=== PATIENT | female | born 1995 | race Caucasian/White ===

== ENCOUNTER 2016-04-13 13:55 | Outpatient (CLI) | payer SELFPAY ==
[~2016-04-13] VITALS: Ht 157.5 cm; Wt 80.1 kg
[~2016-04-13 13:55] MED LIST: PRENAT PO
[2016-04-13 14:02] VITALS: Ht 157.5 cm; Wt 80.1 kg
--- NOTE | 2016-04-13 14:44 | RADRPT ---
PROCEDURE: US OB biophysical profile. CLINICAL INDICATION: decreased movements, labor TECHNIQUE: Multiple sonographic images of the pelvis were obtained. The images were reviewed on a PACS workstation. COMPARISON: 01/10/2016 FINDINGS: There is a single viable intrauterine gestation. Cardiac activity is present with 156 beats per min [place]. There is a vertex presentation. The placenta is anterior. There is no evidence of placental abruption. There is a normal amount of amniotic fluid with an GIORGI = 12.7 cm. Biophysical profile: movement 2/2 tone 2/2. breathing 2/2 GIORGI 2/2 Total 11/11 RPTAT: AA . IMPRESSION: Normal biophysical profile. . .Stevie Moody MD, MD Date Time Electronically viewed and signed by .Stevie Moody MD, MD on 04/13/2016 14:44 .S/
--- NOTE | 2016-04-13 15:37 | TRIAGE ---
OB Triage Datetime Report Generated by CPN: 04/13/2016 15:37 Datetime: 04/13/2016 15:26 Maternal Assessment Level of Consciousness: Fully Conscious DTR's/Clonus: DTRs 1+ Headache: Denies Blurred Vision: No Nausea/Vomiting: Denies RUQ Epigastric Pain: Denies Facial Edema: None Labor Evaluation Frequency: NONE Monitor Mode: External Resting Tone Marcus: Relaxed Heart Rate FHR Baseline Rate: 135 Monitor Mode: External US FHR Baseline Changes: No Baseline Change Variability: Moderate 6-25 bpm Accelerations: 15X15 Decelerations: None Category: Category I Vaginal Exam Membrane Status: Intact Datetime: 04/13/2016 15:17 Maternal Assessment Level of Consciousness: Fully Conscious DTR's/Clonus: DTRs 1+ Headache: Denies Blurred Vision: No Nausea/Vomiting: Denies RUQ Epigastric Pain: Denies Facial Edema: None Labor Evaluation Frequency: X1 Duration (sec)2399: 60 Pattern: Normal: <= 5 Contractions in 10 Minutes Resting Tone Marcus: Relaxed Heart Rate FHR Baseline Rate: 135 Monitor Mode: External US Variability: Moderate 6-25 bpm Accelerations: 15X15 Decelerations: None Category: Category I Pain Assessment Pain Scale: 0 Pain Presence: None/Denies Pain Type: N/A Pain Goal: 0 Vaginal Exam Membrane Status: Intact Datetime: 04/13/2016 14:37 Labor Evaluation Frequency: NONE AT THIS TIME Pattern: Normal: <= 5 Contractions in 10 Minutes Resting Tone Marcus: Relaxed Heart Rate FHR Baseline Rate: 150 Monitor Mode: External US FHR Baseline Changes: No Baseline Change Variability: Moderate 6-25 bpm Accelerations: 15X15 Decelerations: None Category: Category I Datetime: 04/13/2016 14:06 Stage of : OB Triage Assessment Type: Triage Maternal Assessment Level of Consciousness: Fully Conscious DTR's/Clonus: DTRs 2+; No Clonus Headache: Denies Blurred Vision: No Respiratory Effort: Unlabored; Regular Rhythm; Equal Expansion Breath Sounds, Left: Clear and Equal Breath Sounds, Right: Clear and Equal Nausea/Vomiting: Denies RUQ Epigastric Pain: Denies Lower Extremities Edema: None Degree: None Upper Extremities Edema: None Degree: None Facial Edema: None Fall Risk Assessment History of Falling: (0) No Secondary Diagnosis: (0) No Ambulatory Aid: (0) Bedrest/Nurse Assist IV Therapy: (0) No Gait: (0) Normal/Bedrest/Immobile Mental Status: (0) Oriented to Own Ability Fall Score: 0 Fall Risk Score Definition: No Risk: No action required Datetime: 04/13/2016 13:53 Time of Arrival: 04/13/2016 13:53 Arrived By: Ambulatory Arrived From: Home Chief Complaint: FPT CAME IN C/O FLU LIKE Movement: Present Contractions: Denies/Absent Rupture of Membranes: Denies Vaginal Discharge: Denies Recent Sexual Intercouse: Denies Abdominal Trauma: Not Applicable Patient Complaints: Contractions Additional Patient Complaints: NONE Time Provider Notified: 04/13/2016 14:00 Provider Notified: MARLEY Initial Plan: NONE
== END 2016-04-13 15:30 | disposition home or self-care (01) ==
LOC: OBT 13:55 → L-D 13:56 → OBT 15:30
PROVIDERS: ATTEND Obstetrics & Gynecology
DX: O47.1 False labor at or after 37 completed weeks of gestation (principal); Z3A.37 37 weeks gestation of pregnancy
CPT/HCPCS: 76818; G0463

== ENCOUNTER 2016-04-27 15:15 | Inpatient (IN) | payer OTHER ==
[~2016-04-27] VITALS: Ht 157.5 cm; Wt 96.4 kg
[2016-04-27] MEDS ORDERED: LACTATED RINGER'S 1,000 ML IV SCH (15:29)
[2016-04-27] MEDS ORDERED: IBUPROFEN 600 MG TAB PO PRN (15:30)
[2016-04-27] MEDS ORDERED: AMPICILLIN 2 GM/NS (PMX) 100 ML IV ONE (15:30)
[2016-04-27] MEDS ORDERED: BUTORPHANOL 2 MG INJ IV PRN (15:30)
[2016-04-27] MEDS ORDERED: METHYLERGONOVINE 0.2 MG INJ IM PRN (15:30)
[2016-04-27] MEDS ORDERED: LIDOCAINE 1% (MPF) 30 ML INJ INJ PRN (15:30)
[2016-04-27] MEDS ORDERED: OXYTOCIN 30 UNITS/LR 500 ML IV SCH ×2 (15:30)
[2016-04-27] MEDS ORDERED: MISOPROSTOL 200 MCG TAB PR PRN (15:30)
[2016-04-27] MEDS ORDERED: OXYTOCIN 30 UNITS/LR 500 ML IV PRN (15:30)
[2016-04-27] MEDS ORDERED: CARBOPROST 250 MCG INJ IM PRN (15:30)
[2016-04-27] MEDS ORDERED: ACETAMINOPHEN/CODEINE #3 TAB PO PRN (15:30)
[2016-04-27 16:24] VITALS: Ht 157.5 cm; Wt 96.4 kg
[2016-04-27 16:26] VITALS: BP 118/79; PULSE 106; RESP 18
[2016-04-27 17:01] LABS: BASOPHILS % 0.4 % (0.0-2.0); EOSINOPHILS % 0.2 % (0.0-7.0); HEMATOCRIT 38.6 % (37.0-47.0); LYMPHOCYTES # 1.7 10^3/ul (0.8-2.9); LYMPHOCYTES % 16.5 % (15.0-51.0); MEAN CORPUSCULAR HEMOGLOBIN 30.1 pg (29.0-33.0); MEAN CORPUSCULAR HGB CONC 33.7 g/dl (32.0-37.0); MEAN CORPUSCULAR VOLUME 89.4 fl (82.0-101.0); MEAN PLATELET VOLUME 10.4 fl (7.4-10.4); MONOCYTE # 0.9 10^3/ul (0.3-0.9); MONOCYTES % 8.4 % (0.0-11.0); NEUTROPHIL # 7.8 10^3/ul (1.6-7.5); NEUTROPHILS % 74.5 % (39.0-77.0); PLATELET COUNT 214 10^3/UL (140-440); RED BLOOD COUNT 4.32 10^6/ul (4.20-5.40); RED CELL DISTRIBUTION WIDTH 15.8 % (11.5-14.5); UNCORRECTED WBC 10.4 10^3/ul (4.8-10.8); WHITE BLOOD COUNT 10.4 10^3/ul (4.8-10.8)
[2016-04-27 17:05] LABS: CONDITION 1; LH ANALYZER COMMENTS 1
[2016-04-27 17:11] LABS: INR 0.88; PARTIAL THROMBOPLASTIN TIME 27.2 Sec (25.0-35.0); PROTIME 11.9 Sec (12.2-14.2); PT RATIO 0.9
[2016-04-27] MEDS: LACTATED RINGER'S 1,000 ML IV SCH (18:34)
[2016-04-27] MEDS: DEXTROSE 5%-LR 1,000 ML IV SCH (18:47)
[2016-04-27] MEDS ORDERED: DINOPROSTONE 10 MG VAG SUPP VAG ONE (19:00)
[2016-04-27] MEDS: AMPICILLIN 1 GM/NS (PMX) 50 ML IV SCH (20:17)
[2016-04-27] MEDS ORDERED: LACTATED RINGER'S 1,000 ML IV PRN (23:00)
[2016-04-28] MEDS: AMPICILLIN 1 GM/NS (PMX) 50 ML IV SCH ×2 (00:23→03:54)
[2016-04-28] MEDS: DEXTROSE 5%-LR 1,000 ML IV SCH ×2 (07:03→10:34)
[2016-04-28] MEDS: LACTATED RINGER'S 1,000 ML IV SCH ×3 (10:34→23:41)
[2016-04-28] MEDS ORDERED: DINOPROSTONE 10 MG VAG SUPP VAG ONE (15:30)
[2016-04-29] MEDS: LACTATED RINGER'S 1,000 ML IV SCH ×3 (06:59→22:30)
--- NOTE | 2016-04-29 07:51 | RADRPT ---
PROCEDURE: US OB. CLINICAL INDICATION: Post dates TECHNIQUE: Multiple sonographic images of the pelvis were obtained. Transabdominal imaging only w as performed. The images were reviewed on a PACS workstation. COMPARISON: No prior studies are available for comparison. FINDINGS: There is a single live intrauterine gestation. Cardiac activity is present with 129 beats per minut e. position is cephalic. Measurements were made in order to determine age. The results are as follows: BPD = 9.60 cm HC = 33.43 cm AC = 34.09 cm FL = 7.06 cm. Estimated gestational age of approximately 37 weeks 6 days. The estimated date of delivery is 05/14/2016. The EFW = 3296 g, 21.2 %ile. The placenta is anterior. There is no evidence for an abruption or placenta previa. There are no adnexal masses. IMPRESSION: 1. Single live intrauterine gestation of approximately 37 weeks 6 days, by ultrasound criteria. 2. The estimated date of delivery is 05/14/2016. 3. The estimated weight is 3296 g, 21.2 %ile. RPTAT: HH .Alka Espinoza MD, Date Time Electronically viewed and signed by .Alka Espinoza MD, on 04/29/2016 07:51 .G/
[2016-04-29] MEDS ORDERED: OXYTOCIN 30 UNITS/LR 500 ML IV SCH (08:30)
[2016-04-29] MEDS ORDERED: AMPICILLIN 2 GM/NS (PMX) 100 ML IV ONE (14:00)
[2016-04-29] MEDS ORDERED: FENTAnyl 2MCG/ML-ROPIV 0.2% 100 ML ONE (14:17)
[2016-04-29] MEDS ORDERED: NALOXONE (0.4 MG/ML) INJ IV PRN (14:30)
[2016-04-29] MEDS: DEXTROSE 5%-LR 1,000 ML IV PRN ×2 (14:51→22:11)
[2016-04-29] MEDS: AMPICILLIN 1 GM/NS (PMX) 50 ML IV SCH ×2 (18:26→22:03)
[2016-04-30] MEDS: FENTAnyl 2MCG/ML-ROPIV 0.2% 100 ML BAG EPI SCH ×3 (00:05→18:15)
[2016-04-30] MEDS: AMPICILLIN 1 GM/NS (PMX) 50 ML IV SCH ×6 (02:01→21:59)
[2016-04-30] MEDS: LACTATED RINGER'S 1,000 ML IV SCH ×2 (11:38→14:30)
[2016-04-30] MEDS: DEXTROSE 5%-LR 1,000 ML IV PRN ×2 (11:38→20:22)
[2016-04-30 15:27] LABS: BASOPHILS % 0.4 % (0.0-2.0); CONDITION 1; EOSINOPHILS % 0.1 % (0.0-7.0); HEMATOCRIT 38.8 % (37.0-47.0); HEMOGLOBIN 12.9 g/dl (12.0-16.0); LH ANALYZER COMMENTS 1; MEAN CORPUSCULAR HEMOGLOBIN 29.8 pg (29.0-33.0); MEAN CORPUSCULAR HGB CONC 33.4 g/dl (32.0-37.0); MEAN CORPUSCULAR VOLUME 89.3 fl (82.0-101.0); MONOCYTE # 0.6 10^3/ul (0.3-0.9); MONOCYTES % 5.9 % (0.0-11.0); NEUTROPHIL # 8.7 10^3/ul (1.6-7.5); NEUTROPHILS % 83.6 % (39.0-77.0); PLATELET COUNT 189 10^3/UL (140-440); RED BLOOD COUNT 4.35 10^6/ul (4.20-5.40); RED CELL DISTRIBUTION WIDTH 15.6 % (11.5-14.5); UNCORRECTED WBC 10.4 10^3/ul (4.8-10.8); WHITE BLOOD COUNT 10.4 10^3/ul (4.8-10.8)
[2016-04-30 15:37] LABS: ADD UMIC YES; URINE BILIRUBIN (Dip) NEGATIVE (NEGATIVE); URINE BLOOD (Dip) 3+ (NEGATIVE); URINE COLOR LT. YELLOW (YELLOW); URINE GLUCOSE (Dip) NEGATIVE (NEGATIVE); URINE KETONES (Dip) 40 (NEGATIVE); URINE LEUKOCYTE ESTERASE (Dip) NEGATIVE (NEGATIVE); URINE NITRITE (Dip) NEGATIVE (NEGATIVE); URINE TOTAL PROTEIN (Dip) 1+ (NEGATIVE); URINE UROBILINOGEN (Dip) 0.2 E.U./dL (0.1-1.0)
[2016-04-30 15:40] LABS: POTASSIUM 3.9 mmol/L (3.5-5.1)
[2016-04-30 15:42] LABS: BILIRUBIN,INDIRECT 0.4 mg/dl (0-1.1); BILIRUBIN,TOTAL 0.4 mg/dl (0.2-1.3); CREATININE 0.52 mg/dl (0.44-1.00)
[2016-04-30 15:43] LABS: CALCIUM 8.6 mg/dl (8.4-10.2); INR 0.98; URIC ACID 4.5 mg/dl (3.1-7.9)
[2016-04-30 15:44] LABS: PARTIAL THROMBOPLASTIN TIME 30.1 Sec (25.0-35.0)
[2016-04-30 15:45] LABS: SQUAMOUS EPITHELIAL CELL,UR FEW
--- NOTE | 2016-04-30 23:50 | HP ---
Date/Time of Note Date/Time of Note DATE: 04/30/16 TIME: 23:36 OB - History Hx of Present Free Text/Dictation 21 years old with IUP at 40 weeks and 1 dats with care with Dr. Arriaza presented for induction due to GDM A1. She was admitted by and was undergoing induction of labor with cervidil x 2 doses and the started on pitocin she progressed to 4 cm and then stopped., She was ruptured since 13.12 PM I was laborist and I was called by RN to evaluate this tracing after primary OB , Arsalan Fernandes assigned the case for coverage to me. Reviewed the tracing and noted that the fetus has tachycardia with decreased variability. FHT base line initially was at 150 and now to 180's . Scalp stimulation performed and no acceleration noted Exam shows still 4 cm/ 80% and -1. vertex Review of labor curve noted that the patient has been stopped at 4 cm for 6 hours with no cervical change. Due to arrest of labor and NRFHT discussed with the patient about section. Estimated Due Date: Apr 27, 2016 : 1 Para: 0 Care: Good Care Obstetrical Complications: Gestational Diabetes Medical Complications: None Past Family/Social History * Past Medical, Surgical, Family and Obstetric Histories reviewed from chart. Blood Type: O+ Rubella: immune RPR/VDRL: Negative GBS Status: Positive HBsAG: Negative OB Admission Exam Vital Signs Vital Signs Vital Signs Date Time Temp Pulse Resp B/P Pulse Ox O2 Delivery O2 Flow Rate FiO2 04/27/16 16:26 99.0 106 18 118/79 Room Air Physical Exam HEENT: WNL Heart: Rhythm Normal Lungs: Clear Abdomen: WNL Extremities: Normal Cervical Dilatation: 4cm Effacement: 75% Station: -1 Membranes: Ruptured Accelerations: No Accelerations Varibility: Minimum Contractions on Admission: < 5 Minutes Apart Intensity: Moderate Last 72 hourBlood Glucose Bedside Glucose - 72 Hours Test 04/28/16 01:59 04/28/16 04:01 04/28/16 06:39 04/28/16 20:58 Bedside Glucose 83mg/dL (70-220) 93mg/dL (70-220) 85mg/dL (70-220) 93mg/dL (70-220) Test 04/28/16 23:50 04/29/16 04:01 04/29/16 09:57 04/29/16 14:48 Bedside Glucose 84mg/dL (70-220) 84mg/dL (70-220) 90mg/dL (70-220) 73mg/dL (70-220) Test 04/29/16 16:50 04/29/16 18:45 04/29/16 22:07 04/30/16 02:01 Bedside Glucose 70mg/dL (70-220) 67mg/dL (70-220) L 79mg/dL (70-220) 78mg/dL (70-220) Test 04/30/16 05:59 04/30/16 10:26 04/30/16 14:26 04/30/16 18:18 Bedside Glucose 71mg/dL (70-220) 84mg/dL (70-220) 67mg/dL (70-220) L 83mg/dL (70-220) Test 04/30/16 22:10 Bedside Glucose 83mg/dL (70-220) Last 72 hours Lab Results CBC & BMP 04/30/16 15:15 Liver Function Test 04/30/16 15:15 Alanine Aminotransferase (ALT/SGPT) 21 Albumin 3.0 L Alkaline Phosphatase 182 H Aspartate Amino Transf (AST/SGOT) 31 Direct Bilirubin 0.00 Total Protein 6.0 L OB Assessment/Plan Other Assessment: IUP at 40 weeks and 1 days post date GDM A1 SROM, Arrest of labor tachycardia, decreased variability, Cat 2 Discussed with the patient about Urgent section Risks and benefits of section including risk for infection. bleeding, damage to adjacent structures including bowel and bladder and risk for blood transfusion including but not limited to blood borne infection, HIV, Hepatitis B and C and transfusion reactions discussed with the patient informed consent obtained. Patient verbalized undertstanding all above risks and accepts blood transfusion if necessary. All questions were answered to the patient's best satisfaction. Currently receiving Iv ampicillin for GBS prophylaxis Due to possiblity of chorioamnionitis , advised to be started on gentamycin. MIKA NICHOLAS MD Apr 30, 2016 23:49
[2016-05-01] VITALS (8 sets, daily range): BP systolic 113–150; BP diastolic 70–99; PULSE 92–120; RESP 16–20
[2016-05-01] MEDS ORDERED: GENTAMICIN 120 MG/NS (PMX) 100 ML IVPB ONE
[2016-05-01] MEDS ORDERED: CEFAZOLIN 2 GM/50 ML (PMX) 50 ML IVPB ONE
[2016-05-01] MEDS ORDERED: LIDOCAINE 2% (SDV) 5 ML INJ ONE (00:01)
[2016-05-01] MEDS ORDERED: morphine SULFATE/PF (10 MG/10 ML) INJ ONE (00:01)
[2016-05-01] MEDS ORDERED: METOCLOPRAMIDE 10 MG INJ ONE (00:01)
[2016-05-01] MEDS ORDERED: NA BICARBONATE 8.4% 50 ML SYG ONE (00:01)
[2016-05-01] MEDS ORDERED: FENTAnyl 50 MCG/ML VIAL ONE ×2 (00:01→01:00)
[2016-05-01] MEDS ORDERED: OXYTOCIN 10 UNIT INJ ONE ×2 (00:02→00:29)
[2016-05-01] MEDS ORDERED: KETAMINE 500 MG INJ ONE (00:22)
[2016-05-01] MEDS ORDERED: KETOROLAC 30 MG INJ ONE (00:27)
[2016-05-01] MEDS ORDERED: MIDAZOLAM 1 MG/ML 2 ML INJ ONE (00:28)
[2016-05-01] MEDS ORDERED: PHENYLephrine (100 MCG/ML) 5ML SYG ONE (00:36)
--- NOTE | 2016-05-01 01:01 | OPR ---
Operative Report Planned Procedure Procedure date May 01, 2016 Performed by: MIKA NICHOLAS MD Assisting provider: ASTER GODFREY Anesthesiologist: Salinas Ryder M.D. Pre-procedure diagnosis Non reassuring heart tracing Failure to progress Chorioamnionitis Anesthesia Type: epidural Procedure Description Under satisfactory [Epidural ] anesthesia, the patient was prepped and draped and placed in a supine position, tilted to the left. Pfannenstiel incision was made, carried through the subcutaneous tissue. Bleeders brought under control with electrocautery. Fascia incised to the length of the incision. Rectus muscles from the fascia, divided midline. Peritoneum exposed, entered through a transverse incision. Exploration of abdomen revealed gravid uterus. Bladder flap was developed. Transverse incision was made in the lower segment of the uterus. Amniotic sac ruptured. clear [] amniotic fluid noted. baby's head was noted to be in OP position that was grasped and was delivered through the incision. then the [] Nasal oropharyngeal suction was performed. The baby was handed to the team for immediate attention. The placenta was delivered manually intact. Uterine cavity was cleaned with wet sponge and drainage established. Uterus closed in 2 layers using [Monocryl 1-0 ] in continuous fashion in 2 layer. . Peritoneal cavity irrigated with warm saline. Sponge, needle and instrument count reported to be correct. Abdominal peritoneum closed with 2-0 [] continuously. Rectus muscle approximated with 2-0 []. Fascia closed with [1-0 monocryl ], and skin closed with grady. Estimated blood loss []mL. Urine bag contained []mL of urine Post-Procedure Post-procedure diagnosis Occiput posterior Non reassuring heart tracing Failure to progress Findings: Live Baby [], Apgars [] and [], weight [], position [], [] presentation []cord. Specimen removed: Yes Complications: None Pt Condition post procedure: stable Physician Certification I, the undersigned physician, hereby certify that I have discussed the procedure described in this consent form with this patient (or the patient's legal merchandising representative), including: * The risk and benefits of the procedure; * Any adverse reactions that may reasonably be expected to occur; * Any alternative efficacious methods of treatment which may be medically viable ; * The potential problems that may occur during recuperation; * Potential for blood transfusion and associated risks/benefits; and * Any research or economic interest I may have regarding this treatment. I further certify that the patient/legally responsible person was encouraged to ask question and that all questions were answered. IMKA NIHCOLAS MD May 01, 2016 01:01
[2016-05-01] MEDS: LACTATED RINGER'S 1,000 ML IV SCH ×4 (01:03→21:45)
[2016-05-01] MEDS ORDERED: METHYLERGONOVINE 0.2 MG INJ IM PRN (01:30)
[2016-05-01] MEDS ORDERED: GENTAMICIN IVPB SCH (01:30)
[2016-05-01] MEDS ORDERED: MISOPROSTOL 200 MCG TAB PR PRN (01:30)
[2016-05-01] MEDS ORDERED: IBUPROFEN 600 MG TAB PO SCH (01:30)
[2016-05-01] MEDS ORDERED: OXYTOCIN 30 UNITS/LR 500 ML IV PRN (01:30)
[2016-05-01] MEDS ORDERED: CARBOPROST 250 MCG INJ IM PRN (01:30)
[2016-05-01] MEDS ORDERED: SOD CHLORIDE 0.9% IVPB SCH (01:30)
[2016-05-01] MEDS ORDERED: CLINDAMYCIN 900 MG/D5W (PMX) 50 ML IV ONE (01:30)
[2016-05-01] MEDS ORDERED: OXYCODONE/ACETAMINOPHEN (5/325) TAB PO PRN (01:30)
[2016-05-01] MEDS ORDERED: ACETAMINOPHEN/CODEINE #3 TAB PO PRN ×2 (01:30→23:52)
[2016-05-01 01:52] LABS: CBV Base Excess -7.5 mmol/L; Cord Blood Venous AADO2 47.7 mmHg; Cord Blood Venous pO2 30.3 mmHG (15.0-45.0); MODE ROOM AIR; Sample Type CBV
[2016-05-01] MEDS ORDERED: FENTAnyl 50 MCG/ML VIAL IV PRN ×3 (02:00)
[2016-05-01] MEDS ORDERED: ZOLPIDEM 5 MG TAB PO PRN (02:00)
[2016-05-01] MEDS ORDERED: LABETALOL HCL 20MG INJ IV PRN (02:00)
[2016-05-01] MEDS ORDERED: HYDROmorphONE (0.2 MG/ML) 10ML SYG IV PRN ×3 (02:00)
[2016-05-01] MEDS ORDERED: EPHEDrine SULFATE 50 MG/5 ML SYG IV PRN (02:00)
[2016-05-01] MEDS ORDERED: ONDANSETRON 4 MG INJ IV PRN ×2 (02:00)
[2016-05-01] MEDS ORDERED: TRIMETHOBENZAMIDE 100 MG/ML VIAL IM PRN (02:00)
[2016-05-01] MEDS ORDERED: MEPERIDINE 25 MG INJ IV PRN (02:00)
[2016-05-01] MEDS ORDERED: DIPHENHYDRAMINE 50 MG INJ IV PRN ×2 (02:00)
[2016-05-01] MEDS ORDERED: hydrALAzine 20 MG INJ IV PRN (02:00)
[2016-05-01] MEDS ORDERED: MIDAZOLAM 1 MG/ML 2 ML INJ IV PRN (02:00)
[2016-05-01] MEDS ORDERED: NALOXONE (0.4 MG/ML) INJ IV PRN (02:00)
[2016-05-01] MEDS ORDERED: HYDROmorphONE 1 MG/ML SYG IV PRN ×2 (02:00)
[2016-05-01] MEDS: MULTIVIT/MIN/FOLATE/IRON/PREN TAB PO SCH (09:36)
[2016-05-01] MEDS: KETOROLAC 30 MG INJ IV PRN ×3 (10:17→21:30)
[2016-05-01] MEDS ORDERED: ACETAMINOPHEN 325 MG TAB PO PRN (16:30)
[2016-05-01] MEDS: GENTAMICIN 80 MG/NS (PMX) 50 ML IVPB SCH (16:44)
[2016-05-01] MEDS: CEFAZOLIN 2 GM/50 ML (PMX) 50 ML IVPB SCH ×2 (16:53→21:30)
[2016-05-01 17:18] LABS: ADD UMIC YES; URINE BILIRUBIN (Dip) NEGATIVE (NEGATIVE); URINE BLOOD (Dip) 2+ (NEGATIVE); URINE COLOR LT. YELLOW (YELLOW); URINE GLUCOSE (Dip) NEGATIVE (NEGATIVE); URINE KETONES (Dip) 15 (NEGATIVE); URINE LEUKOCYTE ESTERASE (Dip) 2+ (NEGATIVE); URINE NITRITE (Dip) NEGATIVE (NEGATIVE); URINE TOTAL PROTEIN (Dip) NEGATIVE (NEGATIVE); URINE UROBILINOGEN (Dip) 0.2 E.U./dL (0.1-1.0)
[2016-05-01 17:36] LABS: BACTERIA,URINE FEW; SQUAMOUS EPITHELIAL CELL,UR MODERATE
[2016-05-02] MEDS: GENTAMICIN 80 MG/NS (PMX) 50 ML IVPB SCH ×3 (00:17→16:42)
[2016-05-02] MEDS: IBUPROFEN 600 MG TAB PO SCH ×5 (00:26→23:30)
[2016-05-02 03:35] VITALS: BP 127/67; PULSE 90; RESP 19
[2016-05-02] MEDS: CEFAZOLIN 2 GM/50 ML (PMX) 50 ML IVPB SCH ×2 (05:21→13:47)
[2016-05-02 07:41] LABS: BASOPHILS % 0.1 % (0.0-2.0); EOSINOPHILS % 0.3 % (0.0-7.0); HEMOGLOBIN 10.3 g/dl (12.0-16.0); LYMPHOCYTES # 1.2 10^3/ul (0.8-2.9); LYMPHOCYTES % 11.1 % (15.0-51.0); MEAN CORPUSCULAR HEMOGLOBIN 30.9 pg (29.0-33.0); MEAN CORPUSCULAR HGB CONC 34.4 g/dl (32.0-37.0); MEAN CORPUSCULAR VOLUME 89.9 fl (82.0-101.0); MEAN PLATELET VOLUME 9.9 fl (7.4-10.4); MONOCYTE # 0.6 10^3/ul (0.3-0.9); MONOCYTES % 5.8 % (0.0-11.0); NEUTROPHIL # 8.9 10^3/ul (1.6-7.5); NEUTROPHILS % 82.7 % (39.0-77.0); PLATELET COUNT 165 10^3/UL (140-440); RED BLOOD COUNT 3.34 10^6/ul (4.20-5.40); RED CELL DISTRIBUTION WIDTH 15.9 % (11.5-14.5); UNCORRECTED WBC 10.7 10^3/ul (4.8-10.8); WHITE BLOOD COUNT 10.7 10^3/ul (4.8-10.8)
[2016-05-02 07:50] VITALS: BP 134/85; PULSE 86; RESP 16
[2016-05-02 07:55] LABS: CONDITION 1; LH ANALYZER COMMENTS 1
[2016-05-02] MEDS: MULTIVIT/MIN/FOLATE/IRON/PREN TAB PO SCH (08:06)
[2016-05-02] MEDS: LACTATED RINGER'S 1,000 ML IV SCH ×2 (09:03→17:03)
[2016-05-02] MEDS ORDERED: LANOLIN 7 GM TUBE TOP PRN (12:00)
--- NOTE | 2016-05-02 13:32 | PN ---
Date/Time of Note Date/Time of Note DATE: 05/02/16 TIME: 13:31 OB Subjective Subjective Subjective Laboratory Tests Test 05/01/16 16:40 05/02/16 06:35 Urine Bacteria FEW Urine Bilirubin NEGATIVE Urine Clarity SLIGHTLY CLOUDY Urine Color LT. YELLOW Urine Glucose NEGATIVE% Urine Hemoglobin 2+ Urine Ketones 15 Urine Leukocyte Esterase 2+ Urine Microscopic RBC 10-25/HPF Urine Microscopic WBC >50/HPF Urine Nitrite NEGATIVE Urine Specific [place] <=1.005 Urine Squamous Epithelial Cells MODERATE Urine Total Protein NEGATIVE Urine Urobilinogen 0.2 E.U./dL Urine pH 7.0 Basophils # 0.010^3/ul Basophils % 0.1% Blood Morphology Comment Eosinophils # 0.010^3/ul Eosinophils % 0.3% Hematocrit 30.0% Hemoglobin 10.3g/dl Lymphocytes # 1.210^3/ul Lymphocytes % 11.1% Mean Corpuscular Hemoglobin 30.9pg Mean Corpuscular Hemoglobin Concent 34.4g/dl Mean Corpuscular Volume 89.9fl Mean Platelet Volume 9.9fl Monocytes # 0.610^3/ul Monocytes % 5.8% Neutrophils # 8.910^3/ul Neutrophils % 82.7% Nucleated Red Blood Cells # 0.010^3/ul Nucleated Red Blood Cells % 0.0/100WBC Platelet Count 19902^3/UL Red Blood Count 3.3410^6/ul Red Cell Distribution Width 15.9% White Blood Count 10.710^3/ul Current Medications Medications (Trade) Dose Ordered Sig/Ruby Route PRN Reason Start Time Stop Time Status Last Admin Dose Admin Lactated Ringer's 1,000 ml @ 125 mls/hr Q8H IV 04/27/16 15:29 04/27/16 18:41 DC 04/27/16 16:42 Ampicillin 100 ml @ 100 mls/hr ONCE ONCE IV 04/27/16 15:30 04/27/16 16:29 DC 04/27/16 16:46 Ampicillin (Ampicillin 1 Gm/ NS (Pmx)) 50 ml @ 100 mls/hr Q4H IV 04/27/16 19:30 04/28/16 08:56 DC 04/28/16 03:54 Butorphanol Tartrate (Stadol) 2 mg Q2H PRN IV PAIN 04/27/16 15:30 05/01/16 01:08 DC Lidocaine 30 ml 30 ml ONCE PRN INJ EPISIOTOMY/TEARING 04/27/16 15:30 05/01/16 01:08 DC Oxytocin/Lactated Ringer's 500 ml @ 125 mls/hr ONCE -MAY REPEAT X1 IV 04/27/16 15:30 05/01/16 01:08 DC Oxytocin/Lactated Ringer's 500 ml @ 125 mls/hr ONCE IV 04/27/16 15:30 05/01/16 01:08 DC Ibuprofen (Motrin) 600 mg ONCE PRN PO Mild Pain (Pain Score 1-3) 04/27/16 15:30 05/01/16 01:08 DC Acetaminophen/ Codeine Phosphate 2 tab 2 tab ONCE PRN PO Moderate to Severe Pain (4-10) 04/27/16 15:30 04/27/16 20:00 DC Lactated Ringer's 1,000 ml @ 2,000 mls/hr Q30M PRN IV PRE-EPIDURAL BOLUS 04/27/16 23:00 05/01/16 01:08 DC 04/29/16 13:54 Oxytocin/Lactated Ringer's 500 ml @ 0 mls/hr ONCE PRN IV For Hemorrhage Management 04/27/16 15:30 05/01/16 01:08 DC 04/28/16 09:00 Methylergonovine Maleate (Methergine) 0.2 mg ONCE PRN IM VAGINAL BLEEDING 04/27/16 15:30 05/01/16 01:08 DC Carboprost Tromethamine (Hemabate) 250 mcg ONCE PRN IM VAGINAL BLEEDING 04/27/16 15:30 05/01/16 01:08 DC Misoprostol 1000 mcg 1,000 mcg ONCE PRN TN VAGINAL BLEEDING 04/27/16 15:30 05/01/16 01:08 DC Lactated Ringer's 1,000 ml @ 125 mls/hr Q8H IV 04/27/16 18:34 04/28/16 21:04 DC 04/28/16 16:16 Dextrose/Lactated Ringer's (D5-Lr) 1,000 ml @ 125 mls/hr Q8H IV 04/27/16 18:34 04/28/16 21:04 DC 04/28/16 07:03 Dinoprostone (Cervidil Vaginal Supp) 10 mg ONCE ONCE VAG 04/27/16 19:00 04/27/16 19:01 DC 04/27/16 19:00 Dinoprostone 10 mg 10 mg ONCE ONCE VAG 04/28/16 15:30 04/28/16 15:31 DC 04/28/16 16:16 Dextrose/Lactated Ringer's 1,000 ml @ 125 mls/hr Q8H PRN IV DECREASED GLUCOSE 04/28/16 21:30 05/01/16 01:08 DC 04/30/16 20:22 Lactated Ringer's 1,000 ml @ 125 mls/hr Q8H IV 04/28/16 22:30 05/01/16 01:08 DC 04/30/16 11:38 Oxytocin/Lactated Ringer's 500 ml @ 0 mls/hr TITRATE IV 04/29/16 08:30 05/01/16 01:08 DC 04/29/16 08:45 Ampicillin 100 ml @ 100 mls/hr ONCE ONCE IV 04/29/16 14:00 04/29/16 14:59 DC 04/29/16 14:31 Ampicillin 50 ml @ 100 mls/hr Q4H IV 04/29/16 18:00 05/01/16 01:08 DC 04/30/16 21:59 Fentanyl/ Ropivacaine 100 ml @ ud STK-MED ONCE .ROUTE 04/29/16 14:17 04/29/16 14:18 DC Naloxone HCl (Narcan) 0.2 mg Q2M PRN IV FOR RESP RATE 8 OR LESS 04/29/16 14:30 05/01/16 01:08 DC Fentanyl/ Ropivacaine 100 ml 100 ml EPIDURAL (PCEA) EPI 04/29/16 14:30 05/01/16 01:08 DC 04/30/16 18:15 Gentamicin Sulfate 100 ml @ 200 mls/hr ONCE ONCE IVPB 05/01/16 00:00 05/01/16 00:29 DC Cefazolin Sodium/ Dextrose (Ancef 2 Gm/50 ml (Pmx)) 50 ml @ 100 mls/hr ONCE ONCE IVPB 05/01/16 00:00 05/01/16 00:29 DC Lidocaine (Xylocaine 2% (Sdv)) 100 mg STK-MED ONCE .ROUTE 05/01/16 00:01 05/01/16 00:02 DC Sodium Bicarbonate (Na Bicarb 8.4% Syg) 50 ml STK-MED ONCE .ROUTE 05/01/16 00:01 05/01/16 00:02 DC Morphine Sulfate (Duramorph) 10 mg STK-MED ONCE .ROUTE 05/01/16 00:01 05/01/16 00:02 DC Fentanyl (Sublimaze) 100 mcg STK-MED ONCE .ROUTE 05/01/16 00:01 05/01/16 00:02 DC Metoclopramide HCl (Reglan) 10 mg STK-MED ONCE .ROUTE 05/01/16 00:01 05/01/16 00:02 DC Oxytocin (Oxytocin) 10 units STK-MED ONCE .ROUTE 05/01/16 00:02 05/01/16 00:03 DC Ketamine HCl (Ketalar) 500 mg STK-MED ONCE .ROUTE 05/01/16 00:22 05/01/16 00:23 DC Ketorolac Tromethamine (Toradol) 30 mg STK-MED ONCE .ROUTE 05/01/16 00:27 05/01/16 00:28 DC Midazolam HCl (Versed) 2 mg STK-MED ONCE .ROUTE 05/01/16 00:28 05/01/16 00:29 DC Oxytocin (Oxytocin) 10 units STK-MED ONCE .ROUTE 05/01/16 00:29 05/01/16 00:30 DC Phenylephrine HCl (Mitchell-Synephrine Inj Syg) 500 mcg STK-MED ONCE .ROUTE 05/01/16 00:36 05/01/16 00:37 DC Fentanyl 100 mcg 100 mcg STK-MED ONCE .ROUTE 05/01/16 01:00 05/01/16 01:01 DC Lactated Ringer's 1,000 ml @ 125 mls/hr Q8H IV 05/01/16 01:03 05/01/16 21:45 Clindamycin HCl/ Dextrose 50 ml @ 50 mls/hr ONCE ONCE IV 05/01/16 01:30 05/01/16 02:29 DC Gentamicin Sulfate/Sodium Chloride (Gentamicin/NS) 108.5 ml @ 108.5 mls/ hr ONCE IVPB 05/01/16 01:30 05/01/16 03:30 DC Acetaminophen/ Codeine Phosphate (Tylenol No.3) 1 tab Q4H PRN PO PAIN LEVEL 4-6 1/26/17 01:30 05/01/16 02:06 DC Oxycodone/ Acetaminophen (Percocet (5/ 325)) 1 tab Q4H PRN PO PAIN LEVEL 4-6 05/01/16 01:30 05/01/16 02:06 DC Ibuprofen (Motrin) 600 mg Q6 PO 05/01/16 01:30 05/01/16 02:05 DC Simethicone (Mylicon) 160 mg Q8H PRN PO DISTENSION/GAS/BLOATING 05/01/16 01:30 Diphtheria/ Tetanus/Acell Pertussis (Adacel) 0.5 ml ONCE ONCE IM* 05/04/16 09:00 05/04/16 09:01 Measles/Mumps/ Rubella Vaccine Live 0.5 ml 0.5 ml ONCE ONCE SC* 05/04/16 09:00 05/04/16 09:01 Oxytocin/Lactated Ringer's 500 ml @ 0 mls/hr ONCE PRN IV For Hemorrhage Management 05/01/16 01:30 Methylergonovine Maleate (Methergine) 0.2 mg ONCE PRN IM VAGINAL BLEEDING 05/01/16 01:30 Carboprost Tromethamine (Hemabate) 250 mcg ONCE PRN IM VAGINAL BLEEDING 05/01/16 01:30 Misoprostol (Cytotec) 1,000 mcg ONCE PRN TN VAGINAL BLEEDING 05/01/16 01:30 Prenat Multivit/ Welling/Iron/Folic Ac ( S) 1 tab DAILY PO 05/01/16 09:00 05/02/16 08:06 Hydromorphone HCl (Dilaudid (Rec)) 0.2 mg PACU ORDER PRN IV MILD PAIN LEVEL 1-3 05/01/16 02:00 05/01/16 06:00 DC Hydromorphone HCl (Dilaudid (Rec)) 0.4 mg PACU ORDER PRN IV MODERATE PAIN LEVEL 4-6 05/01/16 02:00 05/01/16 06:00 DC Hydromorphone HCl (Dilaudid (Rec)) 0.6 mg PACU ORDER PRN IV SEVERE PAIN LEVEL 7-10 05/01/16 02:00 05/01/16 06:00 DC Fentanyl (Sublimaze) 25 mcg PACU ORDER PRN IV MILD PAIN LEVEL 1-3 05/01/16 02:00 05/01/16 06:00 DC Fentanyl (Sublimaze) 50 mcg PACU ODER PRN IV MODERATE PAIN LEVEL 4-6 05/01/16 02:00 05/01/16 06:00 DC Fentanyl (Sublimaze) 75 mcg PACU ORDER PRN IV SEVERE PAIN LEVEL 7-10 05/01/16 02:00 05/01/16 06:00 DC Ondansetron HCl (Zofran Inj) 4 mg PACU ORDER PRN IV NAUSEA AND/OR VOMITING 05/01/16 02:00 05/01/16 06:00 DC Trimethobenzamide HCl (Tigan) 200 mg PACU ORDER PRN IM NAUSEA AND/OR VOMITING 05/01/16 02:00 05/01/16 06:00 DC Labetalol HCl (Labetalol) 5 mg PACU ORDER PRN IV HIGH BLOOD PRESSURE 05/01/16 02:00 05/01/16 06:00 DC Hydralazine HCl (Apresoline) 5 mg PACU ORDER PRN IV HIGH BLOOD PRESSURE 05/01/16 02:00 05/01/16 06:00 DC Ephedrine Sulfate 5 mg PACU ORDER PRN IV MAP LESS THAN 60 05/01/16 02:00 05/01/16 06:00 DC Meperidine HCl (Demerol) 25 mg PACU ORDER PRN IV POST-OP RIGORS 05/01/16 02:00 05/01/16 06:00 DC Diphenhydramine HCl (Benadryl) 25 mg PACU ORDER PRN IV PRURITUS 05/01/16 02:00 05/01/16 06:00 DC Midazolam HCl (Versed) 0.5 mg PACU ORDER PRN IV ANXIETY 05/01/16 02:00 05/01/16 06:00 DC Naloxone HCl (Narcan) 0.1 mg Q2M PRN IV FOR RESP RATE 8 OR LESS 05/01/16 02:00 05/01/16 23:51 DC Ketorolac Tromethamine (Toradol) 30 mg Q6H PRN IV PAIN 05/01/16 02:00 05/01/16 23:51 DC 05/01/16 21:30 Hydromorphone HCl (Dilaudid) 0.2 mg Q3H PRN IV PAIN LEVEL 1-5 05/01/16 02:00 05/01/16 23:51 DC Hydromorphone HCl (Dilaudid) 0.4 mg Q3H PRN IV PAIN LEVEL 6-10 05/01/16 02:00 05/01/16 23:51 DC Diphenhydramine HCl (Benadryl) 25 mg Q6H PRN IV ITCHING 05/01/16 02:00 05/01/16 23:51 DC Ondansetron HCl (Zofran Inj) 4 mg Q6H PRN IV NAUSEA AND/OR VOMITING 05/01/16 02:00 05/01/16 23:51 DC 05/01/16 09:36 Zolpidem Tartrate (Ambien) 5 mg HS MAY REPEAT X 1 PRN PO INSOMNIA 05/01/16 02:00 05/01/16 23:51 DC Miscellaneous Information (* Miscellaneous Pharmacy Order) Duramorph: 3 mg Epidu... GIVEN XX 05/01/16 02:00 05/01/16 02:03 DC Miscellaneous Information (* Miscellaneous Pharmacy Order) Duramorph: 3 mg Epidu... GIVEN ONCE XX 05/01/16 02:30 05/01/16 02:31 DC Ibuprofen (Motrin) 600 mg Q6 PO 05/02/16 00:00 05/02/16 11:46 Oxycodone/ Acetaminophen (Percocet (5/ 325)) 1 tab Q4H PRN PO PAIN LEVEL 4-6 05/01/16 23:52 Acetaminophen/ Codeine Phosphate 1 tab 1 tab Q4H PRN PO PAIN LEVEL 4-6 05/01/16 23:52 Cefazolin Sodium/ Dextrose 50 ml @ 100 mls/hr Q8 IVPB 05/01/16 16:30 05/02/16 05:21 Gentamicin Sulfate (Gentamicin) 50 ml @ 104 mls/hr Q8H IVPB 05/01/16 16:30 05/02/16 08:06 Acetaminophen (Tylenol Tab) 650 mg Q4H PRN PO PAIN AND OR ELEVATED TEMP 05/01/16 16:30 05/01/16 16:43 Lanolin ([id number]) 1 applic BEDSIDE PRN TOP BEDSIDE FOR JELANI TO NIPPLES 05/02/16 12:00 05/02/16 11:46 Post day 1 Vital sign stable abdomen soft uterus firm incision dry lochia normal extremity normal ambulation recommended ROSALINE ROACH MD May 02, 2016 13:32
[2016-05-02 16:05] VITALS: BP 142/81; PULSE 95; RESP 18
[2016-05-02] MEDS: OXYCODONE/ACETAMINOPHEN (5/325) TAB PO PRN ×2 (17:28→23:30)
[2016-05-02 20:10] VITALS: BP 120/66; PULSE 84; RESP 18
[2016-05-02] MEDS: NITROFURANTOIN (SR) 100 MG CAP PO SCH (22:29)
[2016-05-03 04:15] VITALS: BP 109/84; PULSE 86; RESP 18
[2016-05-03] MEDS: IBUPROFEN 600 MG TAB PO SCH ×3 (05:44→17:57)
[2016-05-03 08:00] VITALS: BP 125/84; PULSE 79; RESP 18
[2016-05-03] MEDS: NITROFURANTOIN (SR) 100 MG CAP PO SCH ×2 (09:21→21:12)
[2016-05-03] MEDS: MULTIVIT/MIN/FOLATE/IRON/PREN TAB PO SCH (09:21)
[2016-05-03 16:02] VITALS: BP 136/86; PULSE 82; RESP 18
[2016-05-03 19:30] VITALS: BP 124/85; PULSE 86; RESP 18
--- NOTE | 2016-05-03 22:48 | QN ---
Documentation Comment POD #2 s/p primary c/s. Doing well with adequate pain control. + BM today. T=98.9. BP= 124/85. Incision C/D/I. Lochia minimal Extremities NT, 2+ edema. P: D/C home tomorrow. FABIOLA NOGUEIRA MD May 03, 2016 22:48
[2016-05-04] MEDS: IBUPROFEN 600 MG TAB PO SCH ×2 (00:28→05:35)
[2016-05-04 03:30] VITALS: BP 122/68; PULSE 80; RESP 18
[2016-05-04 08:32] VITALS: BP 140/84; PULSE 75; RESP 20
[2016-05-04] MEDS ORDERED: MEASLES,MUMPS,RUBELLA VACCINE INJ SC* ONE (09:00)
[2016-05-04] MEDS ORDERED: DIPHTH/TET/ACEL PERTUSS (ADULT) 0.5 ML VIAL IM* ONE (09:00)
[2016-05-04] MEDS: NITROFURANTOIN (SR) 100 MG CAP PO SCH (09:56)
[2016-05-04] MEDS: MULTIVIT/MIN/FOLATE/IRON/PREN TAB PO SCH (09:57)
--- NOTE | 2016-05-04 10:50 | DS ---
Date/Time of Note Date/Time of Note DATE: 05/04/16 TIME: 10:47 Obstetrical Discharge Record Final Diagnosis Final Diagnosis: Term delivered Section Section: Primary Complications Other (nonreassuring heart tracing) Condition on Discharge Physical Assessment Last Vitals: Afebrile vital sign stable abdomen soft incision dry bowel sounds present had bowel movement discharged home with follow-up instruction to be seen at the clinic in 4 days Voiding: Yes Bowel Movement: Yes Breast: Soft, non-tender, Filling Fundus: Firm Calf Tenderness: No Patient Condition: Good ROSALINE ROACH MD May 04, 2016 10:50
--- NOTE | 2016-05-04 10:51 | PD.PPDC ---
STAFF TRAINER Discharge Instruction Condition Patient Condition: Good Activity/Restrictions Activity: Normal Activity May Shower Wound/Drain Care Instructions Wound/Drain Care Instructions: Remove Steri Strips in 1 week Follow-up Follow-up with Physician: 4, Day/Days Return to clinic for CRYPTANALYST Instructions: Fever greater than 101 Chills Worsening abdominal pain Excessive Vaginal Bleeding More than 2 pads per hour Unable to tolerate diet OB Instructions: Breast Tenderness Blurried Vision Headache Surgical Instructions: Incisional Drainage Incisional Redness ROSALINE ROACH MD May 04, 2016 10:51
== END 2016-05-04 12:20 | disposition home or self-care (01) | DRG 765 ==
LOC: L-D 15:15 → PP1 05-01 03:48
PROVIDERS: ADMIT Obstetrics & Gynecology; ATTEND Obstetrics & Gynecology
PROC: 3E0P7GC Introduction of Other Therapeutic Substance into Female Reproductive, Via Natural or Artificial Opening (ICD-10-PCS; 2016-04-30)
PROC: 10D00Z1 Extraction of Products of Conception, Low, Open Approach (ICD-10-PCS; principal; 2016-05-01)
DX: O62.1 Secondary uterine inertia (principal); O41.1230 Chorioamnionitis, third trimester, not applicable or unspecified; O62.0 Primary inadequate contractions; O76 Abnormality in fetal heart rate and rhythm complicating labor and delivery; Z3A.40 40 weeks gestation of pregnancy; Z37.0 Single live birth; O24.419 Gestational diabetes mellitus in pregnancy, unspecified control
CPT/HCPCS: 36415; 62319; 76816; 80053; 81001; 81003; 82803; 82947; 82962; 84560; 85025; 85384; 85610; 85730; 86592; 86900; 86901; 87086; 87340; 90715; 94760; 99464; J0290; J0690; J1580; J1885; J2250; J2274; J2370; J2405; J2590; J2765; J3010; J7120; J7121

== ENCOUNTER 2016-07-19 01:01 | Emergency (ER) | payer OTHER ==
[~2016-07-19] VITALS: Ht 157.5 cm; Wt 84.0 kg
[2016-07-19 01:07] VITALS: Ht 157.5 cm; Wt 84.0 kg
[2016-07-19] MEDS ORDERED: HYDR-906 PO (01:44)
[2016-07-19] MEDS ORDERED: AMO500 PO (01:45)
--- NOTE | 2016-07-19 01:48 | ERD ---
ER Documentation Chief Complaint Date/Time DATE: 07/19/16 TIME: 01:46 Chief Complaint left upper molar dental pain with radiation to the left ear x2 days HPI Patient is a 21-year-old female who presents to the ED with left upper molar pain 2 days. She states that she is planning on seeing a dentist but states that the pain has gotten worse. She states that she might have a cavity. She has been taking Tylenol at home which has helped minimally with her symptoms. Denies fever or chills. Denies drainage. Denies other symptoms. Denies headache or dizziness. Denies difficulty breathing or swallowing. Denies chest pain, cough, shortness of breath or difficulty breathing. No other complaints. ROS All systems reviewed and are negative except as per history of present illness. Medications Home Meds Active Scripts Amoxicillin* (Amoxicillin*) 500 Mg Cap, 500 MG PO TID for 7 Days, CAP Prov:PAGE MITCHELL PA-C 07/19/16 Hydrocodone/Acetaminophen (Camilla 5-325 Tablet) 1 Each Tablet, 1 TAB PO Q6H Y for PAIN, #5 TAB Prov:PAGE MITCHELL PA-C 07/19/16 Multivit/Min/Fol Ac/Iron/Pren* ( S*) 1 Tab Tab, 1 TAB PO DAILY for 30 Days, TAB Prov:STONEY HUGHES PA-C 08/18/15 Allergies Allergies: Coded Allergies: No Known Allergy (Unverified , 04/13/16) PMhx/Soc History of Surgery: No Anesthesia Reaction: No Hx Neurological Disorder: No Hx Respiratory Disorders: No Hx Cardiac Disorders: No Hx Psychiatric Problems: No Hx Miscellaneous Medical Probl: No Hx Alcohol Use: No Hx Substance Use: No Hx Tobacco Use: No Smoking Status: Never smoker Physical Exam Vitals Vital Signs Date Time Temp Pulse Resp B/P Pulse Ox O2 Delivery O2 Flow Rate FiO2 07/19/16 01:07 98.6 97 20 139/83 98 Physical Exam GENERAL: Well-developed, well-nourished female. Appears in no acute distress. HEAD: Normocephalic, atraumatic. EYES: Pupils are equally reactive bilaterally. EOMs grossly intact. No conjunctival erythema. ENT: Moist mucous membranes. No uvula deviation. No kissing tonsils. No exudates. pain with tongue depressor bite. no abscess or drainage. tooth has mild decay left upper molar. NECK: Supple. No lymphadenopathy or thyromegaly. No meningismus. negative kernig. negative brudinski. LUNG: Clear to auscultation bilaterally. No rhonchi, wheezing, rales or coarse breath sounds. HEART: Regular rate and rhythm. No murmurs, rubs or gallops. Extremities: Equal pulses bilaterally. No peripheral clubbing, cyanosis or edema. No unilateral leg swelling. NEUROLOGIC: Alert and oriented. Moving all four extremities. 5/5 strength in all extremities. Normal speech. Steady gait. SKIN: Normal color. Warm and dry. No rashes or lesions. Capillary refill < 2 seconds Procedures/MDM ER COURSE: I kept the patient and/or family informed of laboratory and diagnostic imaging results throughout the emergency room course. MEDICAL DECISION MAKING: This is a 21-year-old female who presents with dental pain 2 days. Vital signs were reviewed. Patient is afebrile. Patient is not hypoxic. Patient is not toxic or ill-appearing. Patient has dental pain of unknown etiology. Patient is to follow-up with dentist, name of dentist will be given to patient. Low suspicion for otitis externa, malignant otitis externa, TM perforation, mastoiditis, acute otitis media, sepsis, meningitis, abscess, peritonsillar abscess. DISCHARGE: At this time, patient is stable for discharge and outpatient management with no new complaints during the ER course. Patient was sent home with amoxicillin and Camilla and name of dental center.. Patient will be discharged home with instructions to recheck for new or worsening symptoms such as fever, nausea, weakness, LOC and to follow up with primary care in the next 1-2 days. Patient was advised to return to the ER for any new or worsening symptoms. Plan was discussed and patient and/or family understands and agrees. Home instructions were given. Departure Diagnosis: Primary Impression: Toothache Condition: Stable Patient Instructions: Dental Pain Referrals: [facility] ([facility] walk in clinic) Additional Instructions: Call your primary care doctor TOMORROW for an appointment during the next 1-2 days.See the doctor sooner or return here if your condition worsens before your appointment time. PAGE MITCHELL PA-C Jul 19, 2016 01:48
== END 2016-07-19 02:17 | disposition home or self-care (01) ==
LOC: FTE 01:01
DX: K08.89 Other specified disorders of teeth and supporting structures (principal)
CPT/HCPCS: 99284

== ENCOUNTER 2016-10-24 12:11 | Emergency (ER) | payer OTHER ==
[~2016-10-24] VITALS: Wt 76.0 kg
[~2016-10-24 12:11] MED LIST changes: +AMO500 PO; +HYDR-906 PO
[2016-10-24 13:55] LABS: BASOPHIL # 0.1 10^3/ul (0.0-0.1); BASOPHILS % 0.6 % (0.0-2.0); EOSINOPHILS # 0.1 10^3/ul (0.0-0.5); EOSINOPHILS % 0.8 % (0.0-7.0); HEMATOCRIT 41.5 % (37.0-47.0); HEMOGLOBIN 13.9 g/dl (12.0-16.0); LYMPHOCYTES # 1.8 10^3/ul (0.8-2.9); LYMPHOCYTES % 20.9 % (15.0-51.0); MEAN CORPUSCULAR HEMOGLOBIN 30.4 pg (29.0-33.0); MEAN CORPUSCULAR HGB CONC 33.5 g/dl (32.0-37.0); MEAN CORPUSCULAR VOLUME 90.8 fl (82.0-101.0); MEAN PLATELET VOLUME 11.1 fl (7.4-10.4); MONOCYTE # 0.7 10^3/ul (0.3-0.9); MONOCYTES % 8.2 % (0.0-11.0); NEUTROPHILS % 69.3 % (39.0-77.0); PLATELET COUNT 285 10^3/UL (140-415); RED BLOOD COUNT 4.57 10^6/ul (4.20-5.40); RED CELL DISTRIBUTION WIDTH 13.6 % (11.5-14.5); WHITE BLOOD COUNT 8.7 10^3/ul (4.8-10.8)
[2016-10-24 14:12] LABS: ALBUMIN 4.4 g/dl (3.3-4.9); ALBUMIN/GLOBULIN RATIO 1.25; BILIRUBIN,INDIRECT 0.1 mg/dl (0-1.1); BILIRUBIN,TOTAL 0.1 mg/dl (0.2-1.3); CALCIUM 9.7 mg/dl (8.4-10.2); CREATININE 0.6 mg/dl (0.44-1.00); POTASSIUM 3.9 mmol/L (3.5-5.1); TOTAL PROTEIN 7.9 g/dl (6.1-8.1)
[2016-10-24 14:30] LABS: ADD UMIC YES; UR ASCORBIC ACID 40 mg/dL (NEGATIVE); UR BACTERIA FEW /HPF (NONE SEEN); UR BILIRUBIN (Dip) NEGATIVE (NEGATIVE); UR BLOOD (Dip) NEGATIVE (NEGATIVE); UR CLARITY CLOUDY (CLEAR); UR COLOR AMBER (YELLOW); UR GLUCOSE (Dip) NEGATIVE (NEGATIVE); UR KETONES (Dip) TRACE mg/dL (NEGATIVE); UR LEUKOCYTE ESTERASE (Dip) NEGATIVE Leu/ul (NEGATIVE); UR MUCUS FEW /HPF (NONE SEEN); UR NITRITE (Dip) NEGATIVE (NEGATIVE); UR RBC 2 /HPF (0-5); UR SPECIFIC GRAVITY (Dip) 1.032 (1.003-1.030); UR TOTAL PROTEIN (Dip) NEGATIVE (NEGATIVE); UR UROBILINOGEN (Dip) NEGATIVE (NEGATIVE)
[2016-10-24] MEDS ORDERED: ACET500C5 PO (14:34)
[2016-10-24] MEDS ORDERED: ONDA8TAB14 PO (14:36)
--- NOTE | 2016-10-24 14:40 | ERD ---
ER Documentation Chief Complaint Date/Time DATE: 10/24/16 TIME: 14:37 Chief Complaint POST OP PAIN FROM C SECTION SITE HPI This 21-year-old female presents with multiple complaints. She complains of some lower abdominal cramping and sensation of bloating, nausea and anxiety. She is concerned about a complication of her performed 6 months ago. She denies dysuria, fevers, vomiting, sustained pain. ROS All systems reviewed and are negative except as per history of present illness. Medications Home Meds Active Scripts Ondansetron (Ondansetron Odt) 8 Mg Tab.rapdis, 8 MG PO Q6H Y for NAUSEA AND/OR VOMITING, #8 TAB Prov:MANI HENDRICKSON MD 10/24/16 Acetaminophen* (Tylophen*) 500 Mg Capsule, 1 CAP PO Q6H Y for PAIN AND OR ELEVATED TEMP, #20 CAP Prov:MANI HENDRICKSON MD 10/24/16 Amoxicillin* (Amoxicillin*) 500 Mg Cap, 500 MG PO TID for 7 Days, CAP Prov:PAGE MITCHELL PA-C 07/19/16 Hydrocodone/Acetaminophen ([place] 5-325 Tablet) 1 Each Tablet, 1 TAB PO Q6H Y for PAIN, #5 TAB Prov:PAGE MITCHELL PA-C 07/19/16 Multivit/Min/Fol Ac/Iron/Pren* ( S*) 1 Tab Tab, 1 TAB PO DAILY for 30 Days, TAB Prov:STONEY HUGHES PA-C 08/18/15 Allergies Allergies: Coded Allergies: No Known Allergy (Unverified , 04/13/16) PMhx/Soc History of Surgery: Yes ( 2016) Anesthesia Reaction: No Hx Neurological Disorder: No Hx Respiratory Disorders: No Hx Cardiac Disorders: No Hx Psychiatric Problems: No Hx Miscellaneous Medical Probl: Yes Hx Alcohol Use: No Hx Substance Use: No Hx Tobacco Use: No Smoking Status: Never smoker Physical Exam Vitals Vital Signs Date Time Temp Pulse Resp B/P Pulse Ox O2 Delivery O2 Flow Rate FiO2 10/24/16 12:21 98.9 102 18 126/81 99 Physical Exam Const: [], [id number]. Head: Atraumatic Eyes: Normal Conjunctiva ENT: Normal External Ears, Nose and Mouth. Neck: Full range of motion..~ No meningismus. Resp: Clear to auscultation bilaterally Cardio: Regular rate and rhythm, no murmurs Abd: Soft, non tender, non distended. Normal bowel sounds. Well-healed C- section scar. No tenderness at McBurney's point no Bro sign. Skin: No petechiae or rashes Back: No midline or flank tenderness Ext: No cyanosis, or edema Neur: Awake and alert Psych: Normal Mood and Affect Result Diagram: 10/24/16 1340 10/24/16 1340 Results 24 hrs Laboratory Tests Test 10/24/16 13:40 White Blood Count 8.710^3/ul Red Blood Count 4.5710^6/ul Hemoglobin 13.9g/dl Hematocrit 41.5% Mean Corpuscular Volume 90.8fl Mean Corpuscular Hemoglobin 30.4pg Mean Corpuscular Hemoglobin Concent 33.5g/dl Red Cell Distribution Width 13.6% Platelet Count 83218^3/UL Mean Platelet Volume 11.1fl Neutrophils % 69.3% Lymphocytes % 20.9% Monocytes % 8.2% Eosinophils % 0.8% Basophils % 0.6% Nucleated Red Blood Cells % 0.0/100WBC Neutrophils # 6.010^3/ul Lymphocytes # 1.810^3/ul Monocytes # 0.710^3/ul Eosinophils # 0.110^3/ul Basophils # 0.110^3/ul Nucleated Red Blood Cells # 0.010^3/ul Urine Color MARY JANE Urine Clarity CLOUDY Urine pH 5.0 Urine Specific Vesper 1.032 Urine Ketones TRACEmg/dL Urine Nitrite NEGATIVEmg/dL Urine Bilirubin NEGATIVEmg/dL Urine Urobilinogen NEGATIVEmg/dL Urine Leukocyte Esterase NEGATIVELeu/ul Urine Microscopic RBC 2/HPF Urine Microscopic WBC 1/HPF Urine Bacteria FEW/HPF Urine Mucus FEW/HPF Urine Hemoglobin NEGATIVEmg/dL Urine Glucose NEGATIVEmg/dL Urine Total Protein NEGATIVEmg/dl Urine Test NEGATIVE Sodium Level 146mmol/L Potassium Level 3.9mmol/L Chloride Level 106mmol/L Carbon Dioxide Level 22mmol/L Anion Gap 22 Blood Urea Nitrogen 13mg/dl Creatinine 0.60mg/dl Glucose Level 105mg/dl Calcium Level 9.7mg/dl Total Bilirubin 0.1mg/dl Direct Bilirubin 0.00mg/dl Indirect Bilirubin 0.1mg/dl Aspartate Amino Transf (AST/SGOT) 20IU/L Alanine Aminotransferase (ALT/SGPT) 40IU/L Alkaline Phosphatase 94IU/L Total Protein 7.9g/dl Albumin 4.4g/dl Globulin 3.50g/dl Albumin/Globulin Ratio 1.25 Lipase 95U/L Current Medications Medications (Trade) Dose Ordered Sig/Ruby Route PRN Reason Start Time Stop Time Status Last Admin Dose Admin Acetaminophen (Tylenol Tab) 500 mg ONCE STAT PO 10/24/16 15:14 10/24/16 15:15 DC 10/24/16 15:28 Ondansetron HCl (Zofran Odt) 8 mg ONCE STAT ODT 10/24/16 15:14 10/24/16 15:15 DC 10/24/16 15:28 Procedures/MDM CBC and CMP and lipase showed no acute abnormalities. Urine shows no leukocytes , nitrites, glucose, hemoglobin. HCG is negative. Patient presents with multiple complaints including nausea, intermittent abdominal discomfort, anxiety. There is no signs of acute abdomen, UTI, pyelonephritis, pneumonia, complications of her 6 months ago. Patient will be discharged home with Tylenol, Zofran and further observation. She may have an early viral illness. Patient is advised to return for vomiting, worsening pain, blood, new worsening symptoms with primary care doctor for further evaluation. The patient was stable with no new complaints during the ER course. Clinically, there is no current evidence to suggest meningitis, sepsis, acute abdomen, pneumonia, acute coronary syndrome, pulmonary embolism, or any other emergent condition appearing to require further evaluation or hospitalization. The patient should certainly return for any new or worsening symptoms per the aftercare instructions. They should otherwise follow-up with her primary care doctor for reevaluation this week. Departure Diagnosis: Primary Impression: Post-op pain Condition: Stable Patient Instructions: Post Op Wound Check, Pain, Symptoms With Uncertain Cause Additional Instructions: Examinations normal today. May be viral illness. uncertain cause of symptoms. Drink plenty of fluids at home and rest and follow-up with primary doctor or return for fevers, vomiting, new or worsening symptoms. MANI HENDRICKSON MD Oct 24, 2016 14:39
[2016-10-24] MEDS ORDERED: ONDANSETRON (ODT) 4 MG TAB ODT STA (15:14)
[2016-10-24] MEDS ORDERED: ACETAMINOPHEN 500 MG TAB PO STA (15:14)
[2016-10-24 15:40] VITALS: BP 124/74; PULSE 95; RESP 18; TEMP 98.8
== END 2016-10-24 15:45 | disposition home or self-care (01) ==
LOC: FTE 12:11
DX: G89.18 Other acute postprocedural pain (principal); R11.0 Nausea; R10.2 Pelvic and perineal pain
CPT/HCPCS: 80053; 81001; 83690; 84703; 85025; Z7502; Z7610; 99283

== ENCOUNTER 2017-02-02 16:19 | Emergency (ER) | payer OTHER ==
[~2017-02-02] VITALS: Ht 157.5 cm; Wt 73.0 kg
[~2017-02-02 16:19] MED LIST changes: +ACET500C5 PO; -AMO500 PO; +AMOX500C2 PO; +ONDA8TAB14 PO
[2017-02-02 16:37] VITALS: Ht 157.5 cm; Wt 73.0 kg
[2017-02-02] MEDS ORDERED: ONDANSETRON (ODT) 4 MG TAB ODT STA (19:38)
--- NOTE | 2017-02-02 20:26 | RADRPT ---
PROCEDURE: US Pelvis. CLINICAL INDICATION: Pelvic pain. TECHNIQUE: The pelvis was evaluated with transabdominal and transvaginal sonography in the axial a nd sagittal planes. COMPARISON: No prior study is available for comparison. FINDINGS: Uterus: Is 0.9 x 3.1 x 4.9 cm. Endometrium: 3.9 mm. Right ovary: 5.1 x 1.5 x 2.3 cm. Left ovary: 3.2 x 2.0 x 2.0 cm. Uterine masses: None. Ovarian masses: None. Color Doppler and pulsed Doppler sonography demonstrate normal flow to the ova jael. Other pelvic masses: None. Free fluid: None. IMPRESSION: 1. Normal pelvic ultrasound. RPTAT: QQ .Reggie Duenas MD, MD Date Time Electronically viewed and signed by .Reggie Duenas MD, on 02/02/2017 20:26 .R/
[2017-02-02] MEDS ORDERED: ONDA4TAB14 PO (21:53)
--- NOTE | 2017-02-02 22:01 | ERD ---
ER Documentation Chief Complaint Chief Complaint vomiting x 3 days HPI 22-year-old female patient who is a presents to the ED complaining of nausea and vomiting that started 3 days ago. Patient reports that she also has a headache and some pelvic cramping. States that this happened 3 days ago. States that she feels like her abdomen has contractions. Reports that she has some vaginal spotting. States that her last menses was July 2015. States that she placed an Implanon for a few days ago. Denies any chest pain, shortness of breath, diarrhea, abdominal pain, fever, chills, dysuria, vaginal bleeding, vaginal discharge. ROS All systems reviewed and are negative except as per history of present illness. Medications Home Meds Active Scripts Ondansetron (Ondansetron Odt) 4 Mg Tab.rapdis, 4 MG PO Q6H Y for NAUSEA AND/OR VOMITING, #10 TAB Prov:CARLIE MILLER PA-C 02/02/17 Ondansetron (Ondansetron Odt) 8 Mg Tab.rapdis, 8 MG PO Q6H Y for NAUSEA AND/OR VOMITING, #8 TAB Prov:MANI HENDRICKSON MD 10/24/16 Acetaminophen* (Tylophen*) 500 Mg Capsule, 1 CAP PO Q6H Y for PAIN AND OR ELEVATED TEMP, #20 CAP Prov:MANI HENDRICKSON MD 10/24/16 Amoxicillin* (Amoxicillin*) 500 Mg Cap, 500 MG PO TID for 7 Days, CAP Prov:PAGE MITCHELL PA-C 07/19/16 Hydrocodone/Acetaminophen ([place] 5-325 Tablet) 1 Each Tablet, 1 TAB PO Q6H Y for PAIN, #5 TAB Prov:PAGE MITCHELL PA-C 07/19/16 Multivit/Min/Fol Ac/Iron/Pren* ( S*) 1 Tab Tab, 1 TAB PO DAILY for 30 Days, TAB Prov:STONEY HUGHES PA-C 08/18/15 Allergies Allergies: Coded Allergies: No Known Allergy (Unverified , 04/13/16) PMhx/Soc Medical and Surgical Hx: pt denies Medical Hx History of Surgery: Yes ( 2017) Anesthesia Reaction: No Hx Neurological Disorder: No Hx Respiratory Disorders: No Hx Cardiac Disorders: No Hx Psychiatric Problems: No Hx Miscellaneous Medical Probl: No Hx Alcohol Use: No Hx Substance Use: No Hx Tobacco Use: No Smoking Status: Never smoker Physical Exam Vitals Vital Signs Date Time Temp Pulse Resp B/P Pulse Ox O2 Delivery O2 Flow Rate FiO2 02/02/17 16:37 98.6 82 16 116/75 99 Physical Exam Const: Lax-jll-iapzgjlnh, well-nourished. In no acute distress. Head: Atraumatic, normocephalic Eyes: Normal Conjunctiva without injection. No purulent discharge. ENT: Normal external ear, nose. Moist oropharynx without tonsillar exudates. Non -erythematous pharynx. Uvula midline. No drooling. No trismus. Neck: No cervical midline tenderness. Full range of motion. No meningismus. No cervical lymphadenopathy. No JVD. Resp: Clear to auscultation bilaterally. No wheezing, rhonchi, rales, or crackles. No accessory muscle use. No retractions. Cardio: Regular rate and rhythm. No murmurs, rubs or gallops. Abd: Soft, slight pelvic tenderness, non distended. Normal bowel sounds. No palpable masses. No rebound tenderness. No guarding. Negative McBurney's point. Negative psoas sign. Negative obturator sign. Skin: No petechiae or rashes Back: No midline tenderness. No CVA tenderness. Ext: No cyanosis, or edema. Neur: Awake and alert. Normal gait. Normal coordination. Psych: Normal Mood and Affect Results 24 hrs Laboratory Tests Test 02/02/17 19:05 02/02/17 20:16 Urine Color YELLOW Urine Clarity CLEAR Urine pH 5.0 Urine Specific Jamieson 1.018 Urine Ketones NEGATIVEmg/dL Urine Nitrite NEGATIVEmg/dL Urine Bilirubin NEGATIVEmg/dL Urine Urobilinogen NEGATIVEmg/dL Urine Leukocyte Esterase NEGATIVELeu/ul Urine Hemoglobin NEGATIVEmg/dL Urine Glucose NEGATIVEmg/dL Urine Total Protein NEGATIVEmg/dl White Blood Count 8.510^3/ul Red Blood Count 4.6910^6/ul Hemoglobin 13.9g/dl Hematocrit 43.3% Mean Corpuscular Volume 92.3fl Mean Corpuscular Hemoglobin 29.6pg Mean Corpuscular Hemoglobin Concent 32.1g/dl Red Cell Distribution Width 13.2% Platelet Count 21856^3/UL Mean Platelet Volume 11.1fl Neutrophils % 61.5% Lymphocytes % 26.7% Monocytes % 8.7% Eosinophils % 2.3% Basophils % 0.6% Nucleated Red Blood Cells % 0.0/100WBC Neutrophils # 5.210^3/ul Lymphocytes # 2.310^3/ul Monocytes # 0.710^3/ul Eosinophils # 0.210^3/ul Basophils # 0.110^3/ul Nucleated Red Blood Cells # 0.010^3/ul Sodium Level 145mmol/L Potassium Level 3.8mmol/L Chloride Level 104mmol/L Carbon Dioxide Level 30mmol/L Anion Gap 15 Blood Urea Nitrogen 9mg/dl Creatinine 0.68mg/dl Glucose Level 86mg/dl Calcium Level 10.0mg/dl Total Bilirubin 0.6mg/dl Direct Bilirubin 0.00mg/dl Indirect Bilirubin 0.6mg/dl Aspartate Amino Transf (AST/SGOT) 23IU/L Alanine Aminotransferase (ALT/SGPT) 30IU/L Alkaline Phosphatase 94IU/L Total Protein 8.3g/dl Albumin 4.5g/dl Globulin 3.80g/dl Albumin/Globulin Ratio 1.18 Lipase 56U/L Serum HCG, Qualitative NEGATIVE Current Medications Medications (Trade) Dose Ordered Sig/Ruby Route PRN Reason Start Time Stop Time Status Last Admin Dose Admin Ondansetron HCl (Zofran Odt) 4 mg ONCE STAT ODT 02/02/17 19:38 02/02/17 19:50 DC 02/02/17 20:11 Procedures/MDM 22-year-old female patient with no significant past medical history presents to the ED complaining of vomiting that started 3 days ago. Patient is afebrile nontoxic appearing. Patient has normal vital signs. Patient was further worked up with CBC, CMP, lipase, UA, pelvic ultrasound. Patient's pain and symptoms have improved after treatment with Zofran, Tylenol. CBC: No leukocytosis. No e/o of systemic infection. No e/o anemia. CMP: No e/o severe acidosis, alkalosis, renal failure, diabetic ketoacidosis, liver disease Lipase within normal limits. Urine: No leukocyte esterase, no nitrites, no hematuria. Urine : Negative PROCEDURE: US Pelvis. CLINICAL INDICATION: Pelvic pain. TECHNIQUE: The pelvis was evaluated with transabdominal and transvaginal sonography in the axial and sagittal planes. COMPARISON: No prior study is available for comparison. FINDINGS: Uterus: Is 0.9 x 3.1 x 4.9 cm. Endometrium: 3.9 mm. Right ovary: 5.1 x 1.5 x 2.3 cm. Left ovary: 3.2 x 2.0 x 2.0 cm. Uterine masses: None. Ovarian masses: None. Color Doppler and pulsed Doppler sonography demonstrate normal flow to the ovaries. Other pelvic masses: None. Free fluid: None. IMPRESSION: 1. Normal pelvic ultrasound. Patient has pelvic pain of unknown etiology. Low suspicion for ectopic , ovarian torsion, gastritis, GERD, peptic ulcer disease, cholecystitis , choledocholithiasis, cholangitis, pancreatitis, appendicitis, bowel obstruction, ileus, volvulus, nephrolithiasis, pyelonephritis, hepatitis, perforated viscus, diverticulitis, strangulated/incarcerated hernia, DKA, acute abdomen, mesenteric ischemia or other emergent conditions. Discharge medications: Zofran Follow up with primary care physician in 1-2 days for referral to position clerk and CUST[employer]ER [employer]. Instructed patient to return to the ED sooner for any worsening symptoms. Patient's questions were answered. Patient understood and agreed with discharge plan. Patient discharged stable. Departure Diagnosis: Primary Impression: Nausea and vomiting Vomiting type: unspecified Vomiting Intractability: unspecified Qualified Code: R11.2 - Nausea and vomiting, intractability of vomiting not specified, unspecified vomiting type Additional Impressions: Pelvic pain Vaginal spotting Condition: Stable Patient Instructions: Control Options, Nausea and Vomiting-Adult, Pelvic Pain, Unknown Cause Referrals: [facility] YOU HAVE RECEIVED A MEDICAL SCREENING EXAM AND THE RESULTS INDICATE THAT YOU DO NOT HAVE A CONDITION THAT REQUIRES URGENT TREATMENT IN THE EMERGENCY DEPARTMENT. FURTHER EVALUATION AND TREATMENT OF YOUR CONDITION CAN WAIT UNTIL YOU ARE SEEN IN YOUR DOCTORS OFFICE WITHIN THE NEXT 1-2 DAYS. IT IS YOUR RESPONSIBILITY TO MAKE AN APPOINTMENT FOR FOLOW-UP CARE. IF YOU HAVE A PRIMARY DOCTOR --you should call your primary doctor and schedule an appointment IF YOU DO NOT HAVE A PRIMARY DOCTOR YOU CAN CALL OUR PHYSICIAN REFERRAL HOTLINE AT IF YOU CAN NOT AFFORD TO SEE A PHYSICIAN YOU CAN CHOSE FROM THE FOLLOWING [facility] [address] [facility]. [facility] [address] [facility]. [facility] [address] [facility] [address] [facility] [phone] [facility] [facility]. [address] [facility]. [facility] YOU HAVE RECEIVED A MEDICAL SCREENING EXAM AND THE RESULTS INDICATE THAT YOU DO NOT HAVE A CONDITION THAT REQUIRES URGENT TREATMENT IN THE EMERGENCY DEPARTMENT. FURTHER EVALUATION AND TREATMENT OF YOUR CONDITION CAN WAIT UNTIL YOU ARE SEEN IN YOUR DOCTORS OFFICE WITHIN THE NEXT 1-2 DAYS. IT IS YOUR RESPONSIBILITY TO MAKE AN APPOINTMENT FOR FOLOW-UP CARE. IF YOU HAVE A PRIMARY DOCTOR --you should call your primary doctor and schedule and appointment IF YOU DO NOT HAVE A PRIMARY DOCTOR YOU CAN CALL OUR PHYSICIAN REFERRAL HOTLINE AT . IF YOU CAN NOT AFFORD TO SEE A PHYSICIAN YOU CAN CHOSE FROM THE FOLLOWING [facility] INSTITUTIONS: [facility] [address] [place] [address] [facility] [address] [place] [address] [facility] [address] [place] [address] [facility]CIALTIES CUSTOMER SUCCESS INTERN [place] [address] [facility] [address] [place], [place] [phone] OFFICE FAX MAGGIE MCKENNA [address] [place], [place] [id number] INIGUEZ CLEMENTS [address] [place], [place] [id number] TOR KESSLER [address] [facility], [address] [address] [address] [address] [facility], [place] [address] [phone] [place] [address] [place], [place] [id number] [address] [facility] [id number] - FABIOLA CROWLEY [address], [facility] [phone], [place] [address] [facility]. [address], [facility] [address] [address]ERAS, [place] [address] [place] [address] Additional Instructions: Call your primary care doctor TOMORROW for an appointment during the next 2-3 days for a referral to see an CUSTOMER SUCCESS INTERN.See the doctor sooner or return here if your condition worsens before your appointment time. CARLIE MILLER PA-C Feb 02, 2017 22:01 your condition worsens before your appointment time. CARLIE MILLER PA-C Feb 02, 2017 22:01
--- NOTE | 2017-02-02 22:01 | ERD ---
ER Documentation Chief Complaint Chief Complaint vomiting x 3 days HPI 22-year-old female patient who is a presents to the ED complaining of nausea and vomiting that started 3 days ago. Patient reports that she also has a headache and some pelvic cramping. States that this happened 3 days ago. States that she feels like her abdomen has contractions. Reports that she has some vaginal spotting. States that her last menses was July 2015. States that she placed an Implanon for a few days ago. Denies any chest pain, shortness of breath, diarrhea, abdominal pain, fever, chills, dysuria, vaginal bleeding, vaginal discharge. ROS All systems reviewed and are negative except as per history of present illness. Medications Home Meds Active Scripts Ondansetron (Ondansetron Odt) 4 Mg Tab.rapdis, 4 MG PO Q6H Y for NAUSEA AND/OR VOMITING, #10 TAB Prov:CARLIE MILLER PA-C 02/02/17 Ondansetron (Ondansetron Odt) 8 Mg Tab.rapdis, 8 MG PO Q6H Y for NAUSEA AND/OR VOMITING, #8 TAB Prov:MANI HENDRICKSON MD 10/24/16 Acetaminophen* (Tylophen*) 500 Mg Capsule, 1 CAP PO Q6H Y for PAIN AND OR ELEVATED TEMP, #20 CAP Prov:MANI HENDRICKSON MD 10/24/16 Amoxicillin* (Amoxicillin*) 500 Mg Cap, 500 MG PO TID for 7 Days, CAP Prov:PAGE MITCHELL PA-C 07/19/16 Hydrocodone/Acetaminophen ([place] 5-325 Tablet) 1 Each Tablet, 1 TAB PO Q6H Y for PAIN, #5 TAB Prov:PAGE MITCHELL PA-C 07/19/16 Multivit/Min/Fol Ac/Iron/Pren* ( S*) 1 Tab Tab, 1 TAB PO DAILY for 30 Days, TAB Prov:STONEY HUGHES PA-C 08/18/15 Allergies Allergies: Coded Allergies: No Known Allergy (Unverified , 04/13/16) PMhx/Soc Medical and Surgical Hx: pt denies Medical Hx History of Surgery: Yes ( 2017) Anesthesia Reaction: No Hx Neurological Disorder: No Hx Respiratory Disorders: No Hx Cardiac Disorders: No Hx Psychiatric Problems: No Hx Miscellaneous Medical Probl: No Hx Alcohol Use: No Hx Substance Use: No Hx Tobacco Use: No Smoking Status: Never smoker Physical Exam Vitals Vital Signs Date Time Temp Pulse Resp B/P Pulse Ox O2 Delivery O2 Flow Rate FiO2 02/02/17 16:37 98.6 82 16 116/75 99 Physical Exam Const: [id number]-htn-qnjszaaqs, well-nourished. In no acute distress. Head: Atraumatic, normocephalic Eyes: Normal Conjunctiva without injection. No purulent discharge. ENT: Normal external ear, nose. Moist oropharynx without tonsillar exudates. Non -erythematous pharynx. Uvula midline. No drooling. No trismus. Neck: No cervical midline tenderness. Full range of motion. No meningismus. No cervical lymphadenopathy. No JVD. Resp: Clear to auscultation bilaterally. No wheezing, rhonchi, rales, or crackles. No accessory muscle use. No retractions. Cardio: Regular rate and rhythm. No murmurs, rubs or gallops. Abd: Soft, slight pelvic tenderness, non distended. Normal bowel sounds. No palpable masses. No rebound tenderness. No guarding. Negative McBurney's point. Negative psoas sign. Negative obturator sign. Skin: No petechiae or rashes Back: No midline tenderness. No CVA tenderness. Ext: No cyanosis, or edema. Neur: Awake and alert. Normal gait. Normal coordination. Psych: Normal Mood and Affect Results 24 hrs Laboratory Tests Test 02/02/17 19:05 02/02/17 20:16 Urine Color YELLOW Urine Clarity CLEAR Urine pH 5.0 Urine Specific [place] 1.018 Urine Ketones NEGATIVEmg/dL Urine Nitrite NEGATIVEmg/dL Urine Bilirubin NEGATIVEmg/dL Urine Urobilinogen NEGATIVEmg/dL Urine Leukocyte Esterase NEGATIVELeu/ul Urine Hemoglobin NEGATIVEmg/dL Urine Glucose NEGATIVEmg/dL Urine Total Protein NEGATIVEmg/dl White Blood Count 8.510^3/ul Red Blood Count 4.6910^6/ul Hemoglobin 13.9g/dl Hematocrit 43.3% Mean Corpuscular Volume 92.3fl Mean Corpuscular Hemoglobin 29.6pg Mean Corpuscular Hemoglobin Concent 32.1g/dl Red Cell Distribution Width 13.2% Platelet Count 84732^3/UL Mean Platelet Volume 11.1fl Neutrophils % 61.5% Lymphocytes % 26.7% Monocytes % 8.7% Eosinophils % 2.3% Basophils % 0.6% Nucleated Red Blood Cells % 0.0/100WBC Neutrophils # 5.210^3/ul Lymphocytes # 2.310^3/ul Monocytes # 0.710^3/ul Eosinophils # 0.210^3/ul Basophils # 0.110^3/ul Nucleated Red Blood Cells # 0.010^3/ul Sodium Level 145mmol/L Potassium Level 3.8mmol/L Chloride Level 104mmol/L Carbon Dioxide Level 30mmol/L Anion Gap 15 Blood Urea Nitrogen 9mg/dl Creatinine 0.68mg/dl Glucose Level 86mg/dl Calcium Level 10.0mg/dl Total Bilirubin 0.6mg/dl Direct Bilirubin 0.00mg/dl Indirect Bilirubin 0.6mg/dl Aspartate Amino Transf (AST/SGOT) 23IU/L Alanine Aminotransferase (ALT/SGPT) 30IU/L Alkaline Phosphatase 94IU/L Total Protein 8.3g/dl Albumin 4.5g/dl Globulin 3.80g/dl Albumin/Globulin Ratio 1.18 Lipase 56U/L Serum HCG, Qualitative NEGATIVE Current Medications Medications (Trade) Dose Ordered Sig/Ruby Route PRN Reason Start Time Stop Time Status Last Admin Dose Admin Ondansetron HCl (Zofran Odt) 4 mg ONCE STAT ODT 02/02/17 19:38 02/02/17 19:50 DC 02/02/17 20:11 Procedures/MDM 22-year-old female patient with no significant past medical history presents to the ED complaining of vomiting that started 3 days ago. Patient is afebrile nontoxic appearing. Patient has normal vital signs. Patient was further worked up with CBC, CMP, lipase, UA, pelvic ultrasound. Patient's pain and symptoms have improved after treatment with Zofran, Tylenol. CBC: No leukocytosis. No e/o of systemic infection. No e/o anemia. CMP: No e/o severe acidosis, alkalosis, renal failure, diabetic ketoacidosis, liver disease Lipase within normal limits. Urine: No leukocyte esterase, no nitrites, no hematuria. Urine : Negative PROCEDURE: US Pelvis. CLINICAL INDICATION: Pelvic pain. TECHNIQUE: The pelvis was evaluated with transabdominal and transvaginal sonography in the axial and sagittal planes. COMPARISON: No prior study is available for comparison. FINDINGS: Uterus: Is 0.9 x 3.1 x 4.9 cm. Endometrium: 3.9 mm. Right ovary: 5.1 x 1.5 x 2.3 cm. Left ovary: 3.2 x 2.0 x 2.0 cm. Uterine masses: None. Ovarian masses: None. Color Doppler and pulsed Doppler sonography demonstrate normal flow to the ovaries. Other pelvic masses: None. Free fluid: None. IMPRESSION: 1. Normal pelvic ultrasound. Patient has pelvic pain of unknown etiology. Low suspicion for ectopic , ovarian torsion, gastritis, GERD, peptic ulcer disease, cholecystitis , choledocholithiasis, cholangitis, pancreatitis, appendicitis, bowel obstruction, ileus, volvulus, nephrolithiasis, pyelonephritis, hepatitis, perforated viscus, diverticulitis, strangulated/incarcerated hernia, DKA, acute abdomen, mesenteric ischemia or other emergent conditions. Discharge medications: Zofran Follow up with primary care physician in 1-2 days for referral to trash collector truck driver and SECTION REPAIRER. Instructed patient to return to the ED sooner for any worsening symptoms. Patient's questions were answered. Patient understood and agreed with discharge plan. Patient discharged stable. Departure Diagnosis: Primary Impression: Nausea and vomiting Vomiting type: unspecified Vomiting Intractability: unspecified Qualified Code: R11.2 - Nausea and vomiting, intractability of vomiting not specified, unspecified vomiting type Additional Impressions: Pelvic pain Vaginal spotting Condition: Stable Patient Instructions: Control Options, Nausea and Vomiting-Adult, Pelvic Pain, Unknown Cause Referrals: [facility] YOU HAVE RECEIVED A MEDICAL SCREENING EXAM AND THE RESULTS INDICATE THAT YOU DO NOT HAVE A CONDITION THAT REQUIRES URGENT TREATMENT IN THE EMERGENCY DEPARTMENT. FURTHER EVALUATION AND TREATMENT OF YOUR CONDITION CAN WAIT UNTIL YOU ARE SEEN IN YOUR DOCTORS OFFICE WITHIN THE NEXT 1-2 DAYS. IT IS YOUR RESPONSIBILITY TO MAKE AN APPOINTMENT FOR FOLOW-UP CARE. IF YOU HAVE A PRIMARY DOCTOR --you should call your primary doctor and schedule an appointment IF YOU DO NOT HAVE A PRIMARY DOCTOR YOU CAN CALL OUR PHYSICIAN REFERRAL HOTLINE AT IF YOU CAN NOT AFFORD TO SEE A PHYSICIAN YOU CAN CHOSE FROM THE FOLLOWING [facility] [address] [facility]. [facility] [address] [facility]. [facility] [address] [facility] [address] [facility] [phone] [address] [facility]. [facility]. [address] [facility]. [facility] YOU HAVE RECEIVED A MEDICAL SCREENING EXAM AND THE RESULTS INDICATE THAT YOU DO NOT HAVE A CONDITION THAT REQUIRES URGENT TREATMENT IN THE EMERGENCY DEPARTMENT. FURTHER EVALUATION AND TREATMENT OF YOUR CONDITION CAN WAIT UNTIL YOU ARE SEEN IN YOUR DOCTORS OFFICE WITHIN THE NEXT 1-2 DAYS. IT IS YOUR RESPONSIBILITY TO MAKE AN APPOINTMENT FOR FOLOW-UP CARE. IF YOU HAVE A PRIMARY DOCTOR --you should call your primary doctor and schedule and appointment IF YOU DO NOT HAVE A PRIMARY DOCTOR YOU CAN CALL OUR PHYSICIAN REFERRAL HOTLINE AT . IF YOU CAN NOT AFFORD TO SEE A PHYSICIAN YOU CAN CHOSE FROM THE FOLLOWING [facility] INSTITUTIONS: [facility] [address] [place] [address] [facility] [address] [place] [address] [facility] [address] [place] [address] [facility] URGENT CARE/SPECIALTIES SECTION REPAIRER [place] [address] [facility] [address] [place], [place] [phone] OFFICE FAX MAGGIE MCKENNA [address] [place], [place] [id number]IG[address] [place] [address] [place], [place] [phone] TOR KESSLER [address] [facility], [address] [address] [address] [address] [facility] [place] [address] [phone] [place] [address] [place], [place] [address] [address] [facility] [address] - [place] [place], [facility] [id number], [place] [address] [facility]. [address], [facility] [address], [place] [address] [place] [address] Additional Instructions: Call your primary care doctor TOMORROW for an appointment during the next 2-3 days for a referral to see an SECTION REPAIRER.See the doctor sooner or return here if your condition worsens before your appointment time. CARLIE MILLER PA-C Feb 02, 2017 22:01 your condition worsens before your appointment time. CARLIE MILLER PA-C Feb 02, 2017 22:01
--- NOTE | 2017-02-02 22:01 | ERD ---
ER Documentation Chief Complaint Chief Complaint vomiting x 3 days HPI 22-year-old female patient who is a presents to the ED complaining of nausea and vomiting that started 3 days ago. Patient reports that she also has a headache and some pelvic cramping. States that this happened 3 days ago. States that she feels like her abdomen has contractions. Reports that she has some vaginal spotting. States that her last menses was July 2015. States that she placed an Implanon for a few days ago. Denies any chest pain, shortness of breath, diarrhea, abdominal pain, fever, chills, dysuria, vaginal bleeding, vaginal discharge. ROS All systems reviewed and are negative except as per history of present illness. Medications Home Meds Active Scripts Ondansetron (Ondansetron Odt) 4 Mg Tab.rapdis, 4 MG PO Q6H Y for NAUSEA AND/OR VOMITING, #10 TAB Prov:CARLIE MILLER PA-C 02/02/17 Ondansetron (Ondansetron Odt) 8 Mg Tab.rapdis, 8 MG PO Q6H Y for NAUSEA AND/OR VOMITING, #8 TAB Prov:MANI HENDRICKSON MD 10/24/16 Acetaminophen* (Tylophen*) 500 Mg Capsule, 1 CAP PO Q6H Y for PAIN AND OR ELEVATED TEMP, #20 CAP Prov:MANI HENDRICKSON MD 10/24/16 Amoxicillin* (Amoxicillin*) 500 Mg Cap, 500 MG PO TID for 7 Days, CAP Prov:PAGE MITCHELL PA-C 07/19/16 Hydrocodone/Acetaminophen ([place] 5-325 Tablet) 1 Each Tablet, 1 TAB PO Q6H Y for PAIN, #5 TAB Prov:PAGE MITCHELL PA-C 07/19/16 Multivit/Min/Fol Ac/Iron/Pren* ( S*) 1 Tab Tab, 1 TAB PO DAILY for 30 Days, TAB Prov:STONEY HUGHES PA-C 08/18/15 Allergies Allergies: Coded Allergies: No Known Allergy (Unverified , 04/13/16) PMhx/Soc Medical and Surgical Hx: pt denies Medical Hx History of Surgery: Yes ( 2017) Anesthesia Reaction: No Hx Neurological Disorder: No Hx Respiratory Disorders: No Hx Cardiac Disorders: No Hx Psychiatric Problems: No Hx Miscellaneous Medical Probl: No Hx Alcohol Use: No Hx Substance Use: No Hx Tobacco Use: No Smoking Status: Never smoker Physical Exam Vitals Vital Signs Date Time Temp Pulse Resp B/P Pulse Ox O2 Delivery O2 Flow Rate FiO2 02/02/17 16:37 98.6 82 16 116/75 99 Physical Exam Const: [id number]-iefnjyxwd, well-nourished. In no acute distress. Head: Atraumatic, normocephalic Eyes: Normal Conjunctiva without injection. No purulent discharge. ENT: Normal external ear, nose. Moist oropharynx without tonsillar exudates. Non -erythematous pharynx. Uvula midline. No drooling. No trismus. Neck: No cervical midline tenderness. Full range of motion. No meningismus. No cervical lymphadenopathy. No JVD. Resp: Clear to auscultation bilaterally. No wheezing, rhonchi, rales, or crackles. No accessory muscle use. No retractions. Cardio: Regular rate and rhythm. No murmurs, rubs or gallops. Abd: Soft, slight pelvic tenderness, non distended. Normal bowel sounds. No palpable masses. No rebound tenderness. No guarding. Negative McBurney's point. Negative psoas sign. Negative obturator sign. Skin: No petechiae or rashes Back: No midline tenderness. No CVA tenderness. Ext: No cyanosis, or edema. Neur: Awake and alert. Normal gait. Normal coordination. Psych: Normal Mood and Affect Results 24 hrs Laboratory Tests Test 02/02/17 19:05 02/02/17 20:16 Urine Color YELLOW Urine Clarity CLEAR Urine pH 5.0 Urine Specific [place] 1.018 Urine Ketones NEGATIVEmg/dL Urine Nitrite NEGATIVEmg/dL Urine Bilirubin NEGATIVEmg/dL Urine Urobilinogen NEGATIVEmg/dL Urine Leukocyte Esterase NEGATIVELeu/ul Urine Hemoglobin NEGATIVEmg/dL Urine Glucose NEGATIVEmg/dL Urine Total Protein NEGATIVEmg/dl White Blood Count 8.510^3/ul Red Blood Count 4.6910^6/ul Hemoglobin 13.9g/dl Hematocrit 43.3% Mean Corpuscular Volume 92.3fl Mean Corpuscular Hemoglobin 29.6pg Mean Corpuscular Hemoglobin Concent 32.1g/dl Red Cell Distribution Width 13.2% Platelet Count 59842^3/UL Mean Platelet Volume 11.1fl Neutrophils % 61.5% Lymphocytes % 26.7% Monocytes % 8.7% Eosinophils % 2.3% Basophils % 0.6% Nucleated Red Blood Cells % 0.0/100WBC Neutrophils # 5.210^3/ul Lymphocytes # 2.310^3/ul Monocytes # 0.710^3/ul Eosinophils # 0.210^3/ul Basophils # 0.110^3/ul Nucleated Red Blood Cells # 0.010^3/ul Sodium Level 145mmol/L Potassium Level 3.8mmol/L Chloride Level 104mmol/L Carbon Dioxide Level 30mmol/L Anion Gap 15 Blood Urea Nitrogen 9mg/dl Creatinine 0.68mg/dl Glucose Level 86mg/dl Calcium Level 10.0mg/dl Total Bilirubin 0.6mg/dl Direct Bilirubin 0.00mg/dl Indirect Bilirubin 0.6mg/dl Aspartate Amino Transf (AST/SGOT) 23IU/L Alanine Aminotransferase (ALT/SGPT) 30IU/L Alkaline Phosphatase 94IU/L Total Protein 8.3g/dl Albumin 4.5g/dl Globulin 3.80g/dl Albumin/Globulin Ratio 1.18 Lipase 56U/L Serum HCG, Qualitative NEGATIVE Current Medications Medications (Trade) Dose Ordered Sig/Ruby Route PRN Reason Start Time Stop Time Status Last Admin Dose Admin Ondansetron HCl (Zofran Odt) 4 mg ONCE STAT ODT 02/02/17 19:38 02/02/17 19:50 DC 02/02/17 20:11 Procedures/MDM 22-year-old female patient with no significant past medical history presents to the ED complaining of vomiting that started 3 days ago. Patient is afebrile nontoxic appearing. Patient has normal vital signs. Patient was further worked up with CBC, CMP, lipase, UA, pelvic ultrasound. Patient's pain and symptoms have improved after treatment with Zofran, Tylenol. CBC: No leukocytosis. No e/o of systemic infection. No e/o anemia. CMP: No e/o severe acidosis, alkalosis, renal failure, diabetic ketoacidosis, liver disease Lipase within normal limits. Urine: No leukocyte esterase, no nitrites, no hematuria. Urine : Negative PROCEDURE: US Pelvis. CLINICAL INDICATION: Pelvic pain. TECHNIQUE: The pelvis was evaluated with transabdominal and transvaginal sonography in the axial and sagittal planes. COMPARISON: No prior study is available for comparison. FINDINGS: Uterus: Is 0.9 x 3.1 x 4.9 cm. Endometrium: 3.9 mm. Right ovary: 5.1 x 1.5 x 2.3 cm. Left ovary: 3.2 x 2.0 x 2.0 cm. Uterine masses: None. Ovarian masses: None. Color Doppler and pulsed Doppler sonography demonstrate normal flow to the ovaries. Other pelvic masses: None. Free fluid: None. IMPRESSION: 1. Normal pelvic ultrasound. Patient has pelvic pain of unknown etiology. Low suspicion for ectopic , ovarian torsion, gastritis, GERD, peptic ulcer disease, cholecystitis , choledocholithiasis, cholangitis, pancreatitis, appendicitis, bowel obstruction, ileus, volvulus, nephrolithiasis, pyelonephritis, hepatitis, perforated viscus, diverticulitis, strangulated/incarcerated hernia, DKA, acute abdomen, mesenteric ischemia or other emergent conditions. Discharge medications: Zofran Follow up with primary care physician in 1-2 days for referral to seismic interpreter and LAB TECH. Instructed patient to return to the ED sooner for any worsening symptoms. Patient's questions were answered. Patient understood and agreed with discharge plan. Patient discharged stable. Departure Diagnosis: Primary Impression: Nausea and vomiting Vomiting type: unspecified Vomiting Intractability: unspecified Qualified Code: R11.2 - Nausea and vomiting, intractability of vomiting not specified, unspecified vomiting type Additional Impressions: Pelvic pain Vaginal spotting Condition: Stable Patient Instructions: Control Options, Nausea and Vomiting-Adult, Pelvic Pain, Unknown Cause Referrals: [facility] YOU HAVE RECEIVED A MEDICAL SCREENING EXAM AND THE RESULTS INDICATE THAT YOU DO NOT HAVE A CONDITION THAT REQUIRES URGENT TREATMENT IN THE EMERGENCY DEPARTMENT. FURTHER EVALUATION AND TREATMENT OF YOUR CONDITION CAN WAIT UNTIL YOU ARE SEEN IN YOUR DOCTORS OFFICE WITHIN THE NEXT 1-2 DAYS. IT IS YOUR RESPONSIBILITY TO MAKE AN APPOINTMENT FOR FOLOW-UP CARE. IF YOU HAVE A PRIMARY DOCTOR --you should call your primary doctor and schedule an appointment IF YOU DO NOT HAVE A PRIMARY DOCTOR YOU CAN CALL OUR PHYSICIAN REFERRAL HOTLINE AT IF YOU CAN NOT AFFORD TO SEE A PHYSICIAN YOU CAN CHOSE FROM THE FOLLOWING [facility] [address] [facility]. [facility] [address] [facility] [address] [facility] [address] [facility] [phone] [address] [facility]. [facility]. [address] [facility]. [facility] YOU HAVE RECEIVED A MEDICAL SCREENING EXAM AND THE RESULTS INDICATE THAT YOU DO NOT HAVE A CONDITION THAT REQUIRES URGENT TREATMENT IN THE EMERGENCY DEPARTMENT. FURTHER EVALUATION AND TREATMENT OF YOUR CONDITION CAN WAIT UNTIL YOU ARE SEEN IN YOUR DOCTORS OFFICE WITHIN THE NEXT 1-2 DAYS. IT IS YOUR RESPONSIBILITY TO MAKE AN APPOINTMENT FOR FOLOW-UP CARE. IF YOU HAVE A PRIMARY DOCTOR --you should call your primary doctor and schedule and appointment IF YOU DO NOT HAVE A PRIMARY DOCTOR YOU CAN CALL OUR PHYSICIAN REFERRAL HOTLINE AT . IF YOU CAN NOT AFFORD TO SEE A PHYSICIAN YOU CAN CHOSE FROM THE FOLLOWING [facility] INSTITUTIONS: [facility] [address] [place] [address] [facility] [address] [place] [address] [facility] [address] [place] [address] [facility] URGENT CARE/SPECIALTIES LAB TECH [place] [address] [facility] [address] [place], [place] [phone] OFFICE FAX MAGGIE MCKENNA [address] [place], [place] [phone] [address] INIG[address] [place] [address] [place], [place] [phone] TOR KESSLER [address] [facility], [id number] [address] [address] [address] [facility], [place] [address] [phone] [place] [address] [place], [place] [address] [address] [facility] [address] - [place] [address], [facility] [id number], [place] [address] [facility]. [address], [facility] [address] [address], [place] [address] [place] [address] Additional Instructions: Call your primary care doctor TOMORROW for an appointment during the next 2-3 days for a referral to see an LAB TECH.See the doctor sooner or return here if your condition worsens before your appointment time. CARLIE MILLER PA-C Feb 02, 2017 22:01 your condition worsens before your appointment time. CARLIE MILLER PA-C Feb 02, 2017 22:01
== END 2017-02-02 21:59 | disposition left against medical advice (07) ==
LOC: FTE 16:19
DX: N93.8 Other specified abnormal uterine and vaginal bleeding (principal); R11.2 Nausea with vomiting, unspecified
CPT/HCPCS: 36415; 76830; 76856; 80053; 81003; 83690; 84703; 85025; Z7502; Z7610